=== PATIENT | male | born 1950 | race Caucasian/White ===

== ENCOUNTER 2020-10-06 12:14 | Emergency (ER) | payer OTHER ==
[~2020-10-06] VITALS: Ht 172.7 cm; Wt 81.8 kg
[~2020-10-06 12:14] MED LIST: GLIPIZIDE5 MG PO; METFORMIN500 M2 PO; ROBAXIN-750750 MG OR
[2020-10-06 12:25] VITALS: BP 165/80
[2020-10-06] MEDS ORDERED: GABAPENTIN250 MG/5 M PO (13:01)
[2020-10-06] MEDS ORDERED: TERAZOSIN2 MG PO (13:06)
[2020-10-06] MEDS ORDERED: LANTUS100 UNIT/M SC (13:07)
[2020-10-06] MEDS ORDERED: ACETAMINOPHEN325 MG PO (13:10)
[2020-10-06] MEDS ORDERED: MOTRIN400 MG/TAB PO (13:11)
[2020-10-06] MEDS ORDERED: GUAIFENESI PO (13:12)
[2020-10-06] MEDS ORDERED: DIPHENHYDRAM25 MG PO (13:13)
[2020-10-06] MEDS ORDERED: ASPIRIN ADULT325 MG PO (13:28)
[2020-10-06] MEDS ORDERED: DITROPAN5 MG/TA1 PO (13:30)
[2020-10-06] MEDS ORDERED: BACLOFEN10 MG PO (14:11)
== END 2020-10-06 15:45 | disposition home or self-care (01) | DRG 204 ==
LOC: ED 12:14
DX: R06.6 Hiccough (principal); E11.9 Type 2 diabetes mellitus without complications; Z79.4 Long term (current) use of insulin; Z20.828 Contact with and (suspected) exposure to other viral communicable diseases

== ENCOUNTER 2020-10-07 17:05 | Inpatient (IN) | payer OTHER ==
[~2020-10-07] VITALS: Ht 172.7 cm; Wt 75.4 kg
[~2020-10-07 17:05] MED LIST changes: +ACETAMINOPHEN325 MG PO; +ASPIRIN ADULT325 MG PO; +BACLOFEN10 MG PO; +DIPHENHYDRAM25 MG PO; +DITROPAN5 MG/TA1 PO; +GABAPENTIN250 MG/5 M PO; +GUAIFENESI PO; +LANTUS100 UNIT/M SC; +MOTRIN400 MG/TAB PO; +TERAZOSIN2 MG PO
--- NOTE | 2020-10-07 17:06 | NUR ---
PT TO ROOM VIA WHEELCHAIR. ACCOMPANIED BY 2 GUARDS.
[2020-10-07 17:58] LABS: IMMATURE GRANULOCYTES 0.6 % (0.0-5.0); MEAN CELL VOLUME 86.3 fL CALC (80.0-100.0); MEAN CORPUSCULAR HGB 29.2 pG CALC (26.0-32.0); MEAN CORPUSCULAR HGB CONC 33.9 g/dL CAL (32.0-36.0); NEUT# 5.85 thou/uL (1.82-7.42); RED BLOOD COUNT 5.71 mill/uL (4.70-6.10); RED CELL DISTRI WIDTH 12.6 % (11.5-15.5)
--- NOTE | 2020-10-07 18:00 | NUR ---
PT RESTING ON STRETCHER WITH TREATMENTS BEING COMPLETED. PT CONTINUES IN SAME STATE OF GCS OF 9
[2020-10-07 18:07] LABS: HEMATOCRIT 49.3 % (39.0-50.0); HEMOGLOBIN 16.7 g/dl (14.0-18.0)
[2020-10-07 18:10] LABS: URINE BLOOD DIPSTICK LARGE (NEGATIVE); URINE COLOR YELLOW; URINE GLUCOSE - DIPSTICK >=1000 mg/dL (NEGATIVE); URINE KETONE 40 mg/dL (NEGATIVE); URINE LEUK ESTERASE NEGATIVE (NEGATIVE); URINE NITRITE - DIPSTICK NEGATIVE (Negative); URINE PROTEIN - DIPSTICK 100 mg/dL (NEG-TRACE); URINE SPECIFIC GRAVITY >=1.030; URINE UROBILINOGEN - DIPSTICK 0.2 E.U./dL (0.2)
[2020-10-07 18:15] LABS: URINE BILIRUBIN - DIPSTICK NEGATIVE (NEGATIVE)
[2020-10-07 18:19] LABS: D-DIMER 2.89 mg/L (0.19-0.60)
[2020-10-07 18:21] LABS: ALBUMIN 4.3 g/dL (3.2-5.0); ALKALINE PHOSPHATASE 83 u/l (38-126); AMYLASE 67 u/l (30-110); BILIRUBIN, TOTAL 1.1 mg/dL (0.0-1.4); CHLORIDE 101 mmol/l (95-108); CREATININE 1.6 mg/dL (0.7-1.3); GFR 43 ML/MIN (>=60 (CALC)); GFR FOR AFR.AMER. 52 ML/MIN (>=60 (CALC)); LIPASE 44 u/l (23-300); MAGNESIUM 2.5 mg/dL (1.6-2.3); SGOT/AST 52 u/l (19-48); SODIUM 139 mmol/l (137-146); TOTAL PROTEIN 7.8 g/dL (6.3-8.2)
[2020-10-07 18:32] LABS: ANION GAP 27 (6-22 (CALC)); BUN 50 mg/dL (8-23); BUN/CREATININE RATIO 31 (12-20 (CALC)); C-REACTIVE PROTEIN > 27.0 mg/dL (0-0.9); CARBON DIOXIDE 16 mmol/l (22-30); POTASSIUM 5.3 mmol/l (3.5-5.1)
[2020-10-07 18:35] LABS: URINE AMORPH SEDIMENT MODERATE hpf (NONE-FER); URINE WBC 0-2 WBC/hpf (0-5)
[2020-10-07 18:43] LABS: ACT PARTIAL THROMBO TIME 24.7 SECONDS (20.0-32.5); INTERNATIONAL NORMALIZED RATIO 1.1 RATIO (0.7-1.3); PROTHROMBIN TIME 10.8 SECONDS (9.0-12.5)
--- NOTE | 2020-10-07 19:00 | NUR ---
MEDS GIVEN, REPORT PASSED ON TO AG NURSE NOTIFIED OF UNCOMPLETE MED REC
--- NOTE | 2020-10-07 20:20 | NUR ---
IV ZITHROMAX INFUSION COMPLETED AND 1 L NACL COMPLETED AFIB CONFUSED AFFECT SPEEECH IS INCOHERENT
--- NOTE | 2020-10-07 22:34 | NUR ---
W/P/D SKIN CONTROLLED AFIB SANDOVAL COLLECTING QS CONC YELLOW URINE
--- NOTE | 2020-10-07 23:18 | NUR ---
ALERT TO ASSESSMENT W/D SKIN SPEECH IS INDECIPHERABLE MUMBLING AFIB CONTROLLED
[2020-10-08] VITALS (9 sets, daily range): BP systolic 138–187; BP diastolic 55–78
--- NOTE | 2020-10-08 00:16 | NUR ---
PT MEDICATED IN CT FOR RESTLESSNESS
--- NOTE | 2020-10-08 01:35 | NUR ---
ACCU CK 229
--- NOTE | 2020-10-08 03:20 | NUR ---
PHONE REPORT TO MIRTA BURNHAM
--- NOTE | 2020-10-08 03:25 | NUR ---
PT TRANSPORTED TO ICU 6 VIA STRETCHER ON TELE AND O2 IN STABLE CONDITION
--- NOTE | 2020-10-08 03:50 | NUR ---
RECEIVED INTO ICU BED 6 FROM ER. TRANSFERRED TO BED BY 4 PERSON ASSIST. PATIENT OPENS EYS TO NAME. NODS HEAD FOR YES AND NO QUESTIONS. NON-VERBAL AT THIS TIME AND NOT ANSWERING ANY QUESTIONS. FOLLOWS SOME SIMPLE COMMANDS-WEAK HAND GRASPS BILATERALLY. ABLE TO WIGGLE TOES AND MOVE LEGS. IV IN RFA WITH CARDIZEM GTT INFUSING AT 15 MG/HR. SITE BENIGN. SALINE LOCK IN LAC. SALES INCENTIVE ANALYST SHOWS AFIB. CALL EARLY IN REACH.
--- NOTE | 2020-10-08 06:00 | NUR ---
RESTING WITH EYES CLOSED. VSS. 2 GUARDS AT DOOR. RIGHT ANKLE SHACKLED. CMS ADEQUATE TO EXTREMITIES. [
--- NOTE | 2020-10-08 09:13 | NUR ---
NO NEED FOR PHYSICAL THERAPY EVALUATION IDENTIFIED AT THIS TIME.
--- NOTE | 2020-10-08 09:42 | NUR ---
PT SEEN RESTING IN THE BED, NO DISTRESS. PT WITH DECREASED LUNG SOUNDS, BUT CLEAR, 3 LPM. PT WAS ABLE TO ANSWER QUESTIONS, BUT APPEARS WEAK GENERALLY. MONITOR SHOWS AFIB, RATE AROUND 100, CARDIZEM AT 15 MG/HR.
[2020-10-08 10:25] LABS: HEMATOCRIT 45.8 % (39.0-50.0); HEMOGLOBIN 14.8 g/dl (14.0-18.0); IMMATURE GRANULOCYTES 0.6 % (0.0-5.0); MEAN CELL VOLUME 90.5 fL CALC (80.0-100.0); MEAN CORPUSCULAR HGB 29.2 pG CALC (26.0-32.0); MEAN CORPUSCULAR HGB CONC 32.3 g/dL CAL (32.0-36.0); NEUT# 3.94 thou/uL (1.82-7.42); RED BLOOD COUNT 5.06 mill/uL (4.70-6.10)
[2020-10-08 10:54] LABS: CREATININE 1.4 mg/dL (0.7-1.3)
[2020-10-08 11:00] LABS: POTASSIUM 5.2 mmol/l (3.5-5.1)
--- NOTE | 2020-10-08 13:29 | NUR ---
O.T. screened patient today and may benefit from a P.T. and/or O.T. Eval when medically stable.
--- NOTE | 2020-10-08 14:55 | NUR ---
PT CONVERTED TO SINUS RHYTHM AT AROUND 1100. PT REMAINS CONFUSED, SLOW MOVING, NO DISTRESS NOTED. TO FLOOR WHEN BED AVAILABLE.
--- NOTE | 2020-10-08 16:26 | NUR ---
PT SEEN SITTING UP IN BED IN NO DISTRESS, GUARDS X 2 AT BEDSIDE.
--- NOTE | 2020-10-08 17:20 | NUR ---
PATIENT RECEIVED FROM ICU AND REPORT GIVEN TO MARISOL BURNHAM FROM ICU NURSE BRITTANEY. PATIENT TRANSPORTED BY BED WITH TWO [facility] GAURDS ASSIGNED TO PATIENT. PATIENT IS ALERT TO SELF AT THIS TIME. SANDOVAL CATH PATENT AND DRAINING YELLOW URINE AT THIS TIME IV SITE RAC HAS .9N/S RUNNING AT 125 PER HOUR. ALL SAFETY MEASURES ARE IN PLACE AT THIS TIME CALL LIGHT WITHIN REACH.
--- NOTE | 2020-10-08 20:16 | NUR ---
PT RESTING IN BED, NO SIGNS OF DISTRESS NOTED, RESP EVEN AND UNLABORED. PT ALERT AND ORIENTED X2, DISCUSSED POC, PT STATES HE IS WEAK, 02 1L NC SATS 97% BP ELEVATED MEDICATED PER MAR. PT HAS A GUARD AT BEDSIDE, ASSESSMENT COMPLETED, CALL LIGHT IN REACH,CONTINUE TO MONITOR.
--- NOTE | 2020-10-08 22:22 | NUR ---
MD NOTIFIED OF BP AND ORDER OBTAINED FOR CLONIDINE, CALL LIGHT IN REACH,CONTINUE TO MONITOR.
--- NOTE | 2020-10-09 | NUR ---
REPORT RECEIVED FROM [facility].
[2020-10-09 00:15] VITALS: BP 165/68
[2020-10-09 03:46] VITALS: BP 198/86
--- NOTE | 2020-10-09 03:47 | NUR ---
PT IS LAYING IN BED IN HIGH [place], SLEEPING. NO S/SX OF DISTRESS OR DISCOMFORT OBSERVED AT THIS TIME, WILL CONITINUE TO MONITOR FOR COMFORT AND SAFETY.
[2020-10-09 05:42] LABS: HEMATOCRIT 43.2 % (39.0-50.0); HEMOGLOBIN 14.6 g/dl (14.0-18.0); IMMATURE GRANULOCYTES 1.3 % (0.0-5.0); MEAN CELL VOLUME 88.3 fL CALC (80.0-100.0); MEAN CORPUSCULAR HGB 29.9 pG CALC (26.0-32.0); MEAN CORPUSCULAR HGB CONC 33.8 g/dL CAL (32.0-36.0); RED BLOOD COUNT 4.89 mill/uL (4.70-6.10); RED CELL DISTRI WIDTH 13.4 % (11.5-15.5)
[2020-10-09 05:45] LABS: ALKALINE PHOSPHATASE 49 u/l (38-126); BILIRUBIN, TOTAL 1.2 mg/dL (0.0-1.4); BUN 40 mg/dL (8-23); BUN/CREATININE RATIO 35 (12-20 (CALC)); CHLORIDE 113 mmol/l (95-108); CREATININE 1.1 mg/dL (0.7-1.3); GFR > 60 ML/MIN (>=60 (CALC)); GFR FOR AFR.AMER. > 60 ML/MIN (>=60 (CALC)); SGOT/AST 41 u/l (19-48); SODIUM 138 mmol/l (137-146)
[2020-10-09 05:53] LABS: ALBUMIN 2.6 g/dL (3.2-5.0); ANION GAP 11 (6-22 (CALC)); CARBON DIOXIDE 19 mmol/l (22-30); POTASSIUM 5.2 mmol/l (3.5-5.1); TOTAL PROTEIN 5.4 g/dL (6.3-8.2)
[2020-10-09 06:01] LABS: INTERNATIONAL NORMALIZED RATIO 1.2 RATIO (0.7-1.3)
[2020-10-09 08:32] VITALS: BP 175/78
[2020-10-09 11:00] VITALS: BP 139/67
[2020-10-09] MEDS ORDERED: CLONIDINE HCL0.1 MG PO (11:43)
[2020-10-09] MEDS ORDERED: LEVEMIR100 UNIT/M SC (11:43)
[2020-10-09] MEDS ORDERED: ELIQUIS2.5 MG PO (11:43)
[2020-10-09] MEDS ORDERED: CARDIZEM CD240 MG PO (11:43)
[2020-10-09] MEDS ORDERED: ZITHROMAX250 MG PO (12:03)
[2020-10-09 14:50] VITALS: BP 126/65
--- NOTE | 2020-10-09 19:00 | NUR ---
REPORT RECIEVED FROM DANIEL PT IS A&O X3 WITH NO S/SX OF DISTRESS OR DISCOMFORT OBSERVED OR REPORT. TELE & IV SITES HAVE BEEN D/C. PT IS BEING DISCHARGED BACK TO [facility] TONIGHT AND PENDING TRANSPORT.
--- NOTE | 2020-10-09 19:29 | NUR ---
Patient discharged back to correctional facility, patient left hospital via W/C with correctional staff. Discharge papework reviewed with patient and staff. IV removed, no bleeding noted, catheter intact.
--- NOTE | 2020-10-09 19:30 | NUR ---
[facility] CALLED AND NOTIFIED PT HAS LEFT UNIT AND IS ON THE WAY BACK TO THE FACILITY. PT TRANSPORTED VIA WHEELCHAIR ACCOMPANIED BY GUARD AND ROUTER OPERATOR PIN, PT IN STABLE CONDITION UPON DEPARTURE. REPORT CALLED INTO NURSE BROOKS. AND DISCHARGE FORM FAXED.
== END 2020-10-09 23:18 | disposition designated cancer center or children's hospital (05) | DRG 308 ==
LOC: ED 17:05 → ED-I 10-08 01:23 → ED 10-08 02:21 → ICU 10-08 02:22 → MS2 10-08 17:20
PROVIDERS: ADMIT Internal Medicine; ATTEND Internal Medicine
DX: I48.91 Unspecified atrial fibrillation (principal); U07.1 COVID-19; J12.89 Other viral pneumonia; E11.9 Type 2 diabetes mellitus without complications; I10 Essential (primary) hypertension; N40.0 Benign prostatic hyperplasia without lower urinary tract symptoms; Z79.4 Long term (current) use of insulin; Z79.82 Long term (current) use of aspirin; Z79.899 Other long term (current) drug therapy; Z88.6 Allergy status to analgesic agent; Z88.8 Allergy status to other drugs, medicaments and biological substances; Z90.5 Acquired absence of kidney
CPT/HCPCS: J1650; Q9967

== ENCOUNTER 2022-08-07 00:39 | Inpatient (IN) | payer OTHER ==
[2022-08-07] VITALS (23 sets, daily range): BP systolic 101–181; BP diastolic 50–129
[~2022-08-07] VITALS: Ht 172.7 cm; Wt 80.0 kg
[~2022-08-07 00:39] MED LIST changes: +CARDIZEM CD240 MG PO; +CLONIDINE HCL0.1 MG PO; +ELIQUIS2.5 MG PO; +LEVEMIR100 UNIT/M SC; +ZITHROMAX250 MG PO
[2022-08-07 01:34] LABS: HEMATOCRIT 39.3 % (39.0-50.0); IMMATURE GRANULOCYTES 0.1 % (0.0-5.0); MEAN CELL VOLUME 86.9 fL CALC (80.0-100.0); MEAN CORPUSCULAR HGB 28.8 pG CALC (26.0-32.0); MEAN CORPUSCULAR HGB CONC 33.1 g/dL CAL (32.0-36.0); NEUT# 7.02 thou/uL (1.82-7.42); RED BLOOD COUNT 4.52 mill/uL (4.70-6.10); RED CELL DISTRI WIDTH 12.1 % (11.5-15.5)
[2022-08-07 01:36] LABS: URINE BILIRUBIN - DIPSTICK NEGATIVE (NEGATIVE); URINE COLOR YELLOW; URINE GLUCOSE - DIPSTICK >=1000 mg/dL (NEGATIVE); URINE KETONE 15 mg/dL (NEGATIVE); URINE LEUK ESTERASE NEGATIVE (NEGATIVE); URINE PROTEIN - DIPSTICK 100 mg/dL (NEG-TRACE); URINE SPECIFIC GRAVITY 1.015; URINE UROBILINOGEN - DIPSTICK 0.2 E.U./dL (0.2)
[2022-08-07 01:41] LABS: URINE BLOOD DIPSTICK SMALL (NEGATIVE); URINE NITRITE - DIPSTICK NEGATIVE (Negative)
[2022-08-07 01:46] LABS: INTERNATIONAL NORMALIZED RATIO 1.3 RATIO (0.7-1.3); PROTHROMBIN TIME 12.7 SECONDS (9.0-12.5)
[2022-08-07 01:52] LABS: URINE BACTERIA FEW hpf; URINE SQUAMOUS EPITHELIAL CELL FEW EPI/hpf (0-FEW)
[2022-08-07 01:55] LABS: CREATININE 1.4 mg/dL (0.7-1.3)
[2022-08-07] MEDS ORDERED: LIPITOR20 M1 PO (02:16)
[2022-08-07] MEDS ORDERED: LANTUS100 UNIT (02:18)
[2022-08-07] MEDS ORDERED: TAMSULOSIN HCL0.4 MG PO (02:47)
[2022-08-07] MEDS ORDERED: HUMULIN N100 UNIT/M SC (02:50)
[2022-08-07 05:52] LABS: MEAN CELL VOLUME 88.5 fL CALC (80.0-100.0); MEAN CORPUSCULAR HGB 28.8 pG CALC (26.0-32.0); MEAN CORPUSCULAR HGB CONC 32.5 g/dL CAL (32.0-36.0); RED BLOOD COUNT 3.65 mill/uL (4.70-6.10); RED CELL DISTRI WIDTH 12.1 % (11.5-15.5)
[2022-08-07 05:53] LABS: HEMATOCRIT 32.3 % (39.0-50.0); HEMOGLOBIN 10.5 g/dl (14.0-18.0)
[2022-08-07 06:09] LABS: BUN 32 mg/dL (8-23); BUN/CREATININE RATIO 26 (12-20 (CALC)); CHLORIDE 102 mmol/l (95-108); CREATININE 1.2 mg/dL (0.7-1.3); GFR FOR AFR.AMER. > 60 ML/MIN (>=60 (CALC)); GFR OTHER RACES 60 ML/MIN (>=60 (CALC)); POTASSIUM 4.1 mmol/l (3.5-5.1); SODIUM 133 mmol/l (137-146)
[2022-08-07 06:10] LABS: ANION GAP 18 (6-22 (CALC)); CARBON DIOXIDE 17 mmol/l (22-30); MAGNESIUM 1.8 mg/dL (1.6-2.3)
[2022-08-07] MEDS ORDERED: LANTUS100 UNIT SC (16:30)
[2022-08-07] MEDS ORDERED: HUMULIN R500 UNIT/1 (16:32)
[2022-08-07] MEDS ORDERED: MINERI1 TOP (16:34)
[2022-08-07] MEDS ORDERED: ELIQUIS2.5 MG PO (17:08)
[2022-08-07] MEDS ORDERED: NOVOLIN R100 UNIT/1 SC (17:15)
[2022-08-07] MEDS ORDERED: METFORMIN500 M2 PO (17:18)
[2022-08-07 19:56] LABS: IMMATURE GRANULOCYTES 0.1 % (0.0-5.0); MEAN CORPUSCULAR HGB CONC 33.3 g/dL CAL (32.0-36.0); NEUT# 5.78 thou/uL (1.82-7.42); RED BLOOD COUNT 4.14 mill/uL (4.70-6.10); RED CELL DISTRI WIDTH 12.1 % (11.5-15.5)
[2022-08-07 20:11] LABS: ALBUMIN 3.4 g/dL (3.2-5.0); ALKALINE PHOSPHATASE 145 u/l (38-126); ANION GAP 13 (6-22 (CALC)); BILIRUBIN, TOTAL 1.1 mg/dL (0.0-1.4); BUN 31 mg/dL (8-23); BUN/CREATININE RATIO 24 (12-20 (CALC)); CARBON DIOXIDE 20 mmol/l (22-30); CHLORIDE 106 mmol/l (95-108); CREATININE 1.3 mg/dL (0.7-1.3); GFR FOR AFR.AMER. > 60 ML/MIN (>=60 (CALC)); GFR OTHER RACES 54 ML/MIN (>=60 (CALC)); MAGNESIUM 1.9 mg/dL (1.6-2.3); POTASSIUM 4.1 mmol/l (3.5-5.1); SGOT/AST 36 u/l (19-48); SODIUM 135 mmol/l (137-146); TOTAL PROTEIN 6.9 g/dL (6.3-8.2)
[2022-08-08] VITALS (36 sets, daily range): BP systolic 130–205; BP diastolic 59–121
[2022-08-08 05:47] LABS: HEMATOCRIT 36.4 % (39.0-50.0); HEMOGLOBIN 11.8 g/dl (14.0-18.0); MEAN CELL VOLUME 87.3 fL CALC (80.0-100.0); MEAN CORPUSCULAR HGB 28.3 pG CALC (26.0-32.0); MEAN CORPUSCULAR HGB CONC 32.4 g/dL CAL (32.0-36.0); RED BLOOD COUNT 4.17 mill/uL (4.70-6.10); RED CELL DISTRI WIDTH 12.2 % (11.5-15.5)
[2022-08-08 06:20] LABS: ALBUMIN 3.3 g/dL (3.2-5.0); ALKALINE PHOSPHATASE 141 u/l (38-126); ANION GAP 14 (6-22 (CALC)); BILIRUBIN, TOTAL 0.7 mg/dL (0.0-1.4); BUN 32 mg/dL (8-23); BUN/CREATININE RATIO 28 (12-20 (CALC)); CARBON DIOXIDE 23 mmol/l (22-30); CHLORIDE 102 mmol/l (95-108); CREATININE 1.2 mg/dL (0.7-1.3); GFR FOR AFR.AMER. > 60 ML/MIN (>=60 (CALC)); GFR OTHER RACES 59 ML/MIN (>=60 (CALC)); MAGNESIUM 1.9 mg/dL (1.6-2.3); POTASSIUM 3.6 mmol/l (3.5-5.1); SGOT/AST 33 u/l (19-48); SODIUM 136 mmol/l (137-146); TOTAL PROTEIN 6.7 g/dL (6.3-8.2)
[2022-08-09] VITALS (12 sets, daily range): BP systolic 113–201; BP diastolic 59–98
[2022-08-09 05:37] LABS: HEMATOCRIT 36.1 % (39.0-50.0); MEAN CELL VOLUME 86.8 fL CALC (80.0-100.0); MEAN CORPUSCULAR HGB 28.8 pG CALC (26.0-32.0); MEAN CORPUSCULAR HGB CONC 33.2 g/dL CAL (32.0-36.0); RED BLOOD COUNT 4.16 mill/uL (4.70-6.10); RED CELL DISTRI WIDTH 12.3 % (11.5-15.5)
[2022-08-09 05:55] LABS: ALBUMIN 2.7 g/dL (3.2-5.0); ALKALINE PHOSPHATASE 122 u/l (38-126); ANION GAP 12 (6-22 (CALC)); BILIRUBIN, TOTAL 0.8 mg/dL (0.0-1.4); BUN 25 mg/dL (8-23); BUN/CREATININE RATIO 25 (12-20 (CALC)); CARBON DIOXIDE 25 mmol/l (22-30); CHLORIDE 102 mmol/l (95-108); GFR FOR AFR.AMER. > 60 ML/MIN (>=60 (CALC)); GFR OTHER RACES > 60 ML/MIN (>=60 (CALC)); POTASSIUM 3.6 mmol/l (3.5-5.1); SGOT/AST 27 u/l (19-48); SODIUM 135 mmol/l (137-146); TOTAL PROTEIN 5.5 g/dL (6.3-8.2)
[2022-08-10] VITALS: BP 168/78
[2022-08-10 02:04] LABS: HEMATOCRIT 35.1 % (39.0-50.0); HEMOGLOBIN 11.8 g/dl (14.0-18.0); MEAN CORPUSCULAR HGB 28.9 pG CALC (26.0-32.0); MEAN CORPUSCULAR HGB CONC 33.6 g/dL CAL (32.0-36.0); RED BLOOD COUNT 4.08 mill/uL (4.70-6.10); RED CELL DISTRI WIDTH 12.2 % (11.5-15.5)
[2022-08-10 02:17] LABS: BUN 23 mg/dL (8-23); BUN/CREATININE RATIO 22 (12-20 (CALC)); CARBON DIOXIDE 20 mmol/l (22-30); CREATININE 1.1 mg/dL (0.7-1.3); GFR FOR AFR.AMER. > 60 ML/MIN (>=60 (CALC)); GFR OTHER RACES > 60 ML/MIN (>=60 (CALC)); MAGNESIUM 1.9 mg/dL (1.6-2.3); POTASSIUM 3.7 mmol/l (3.5-5.1); SODIUM 133 mmol/l (137-146)
[2022-08-10 02:19] LABS: ANION GAP 17 (6-22 (CALC)); CHLORIDE 100 mmol/l (95-108)
[2022-08-10 04:00] VITALS: BP 181/73
[2022-08-10 10:40] VITALS: BP 162/68
[2022-08-10 15:14] VITALS: BP 195/79
[2022-08-10 15:17] VITALS: BP 195/79
[2022-08-10] MEDS ORDERED: ROCEPHIN 1 GM1 GM IV (18:52)
[2022-08-12 03:30] VITALS: BP 161/83
== END 2022-08-10 21:05 | disposition designated cancer center or children's hospital (05) | DRG 871 ==
LOC: ED 00:39 → ED-I 03:00 → ED 03:24 → ICU 03:25 → MS2 03:25
PROVIDERS: Emergency Medicine; Internal Medicine; ADMIT Internal Medicine; ATTEND Internal Medicine
DX: A40.1 Sepsis due to streptococcus, group B (principal); K22.6 Gastro-esophageal laceration-hemorrhage syndrome; L97.423 Non-pressure chronic ulcer of left heel and midfoot with necrosis of muscle; E11.52 Type 2 diabetes mellitus with diabetic peripheral angiopathy with gangrene; I96 Gangrene, not elsewhere classified; L03.116 Cellulitis of left lower limb; R65.20 Severe sepsis without septic shock; E11.621 Type 2 diabetes mellitus with foot ulcer; E11.65 Type 2 diabetes mellitus with hyperglycemia; E11.628 Type 2 diabetes mellitus with other skin complications; I10 Essential (primary) hypertension; I48.91 Unspecified atrial fibrillation; R06.6 Hiccough; K59.00 Constipation, unspecified; N40.0 Benign prostatic hyperplasia without lower urinary tract symptoms; T38.3X6A Underdosing of insulin and oral hypoglycemic [antidiabetic] drugs, initial encounter; Z91.128 Patient's intentional underdosing of medication regimen for other reason; Z79.4 Long term (current) use of insulin; Z90.49 Acquired absence of other specified parts of digestive tract; Z79.01 Long term (current) use of anticoagulants; Z90.5 Acquired absence of kidney; Z85.038 Personal history of other malignant neoplasm of large intestine; Z20.822 Contact with and (suspected) exposure to COVID-19
CPT/HCPCS: A9579; J0692; J1650; Q3014; S0164

== ENCOUNTER 2022-08-18 12:58 | Inpatient (IN) | payer OTHER ==
[2022-08-18] VITALS (10 sets, daily range): BP systolic 112–155; BP diastolic 44–95
[~2022-08-18] VITALS: Ht 172.7 cm; Wt 77.0 kg
[~2022-08-18 12:58] MED LIST changes: +HUMULIN N100 UNIT/M SC; +HUMULIN R500 UNIT/1; +LANTUS100 UNIT; +LANTUS100 UNIT SC; +LIPITOR20 M1 PO; +MINERI1 TOP; +NOVOLIN R100 UNIT/1 SC; +ROCEPHIN 1 GM1 GM IV; +TAMSULOSIN HCL0.4 MG PO
[2022-08-18 14:12] LABS: HEMATOCRIT 36.7 % (39.0-50.0); HEMOGLOBIN 11.9 g/dl (14.0-18.0); IMMATURE GRANULOCYTES 0.4 % (0.0-5.0); MEAN CORPUSCULAR HGB 28.5 pG CALC (26.0-32.0); MEAN CORPUSCULAR HGB CONC 32.4 g/dL CAL (32.0-36.0); NEUT# 12.53 thou/uL (1.82-7.42); RED BLOOD COUNT 4.17 mill/uL (4.70-6.10); RED CELL DISTRI WIDTH 12.7 % (11.5-15.5)
[2022-08-18 14:34] LABS: ALKALINE PHOSPHATASE 167 u/l (38-126); BILIRUBIN, TOTAL 1.1 mg/dL (0.0-1.4); BUN 22 mg/dL (8-23); BUN/CREATININE RATIO 18 (12-20 (CALC)); CARBON DIOXIDE 23 mmol/l (22-30); CHLORIDE 96 mmol/l (95-108); CREATININE 1.2 mg/dL (0.7-1.3); GFR FOR AFR.AMER. > 60 ML/MIN (>=60 (CALC)); GFR OTHER RACES 59 ML/MIN (>=60 (CALC)); SGOT/AST 31 u/l (19-48); SODIUM 136 mmol/l (137-146)
[2022-08-18 14:36] LABS: ALBUMIN 3.5 g/dL (3.2-5.0); ANION GAP 22 (6-22 (CALC)); POTASSIUM 4.9 mmol/l (3.5-5.1); TOTAL PROTEIN 7.6 g/dL (6.3-8.2)
[2022-08-18] MEDS ORDERED: TERAZOSIN2 MG PO (16:16)
[2022-08-19 04:09] VITALS: BP 149/52
[2022-08-19 06:20] VITALS: BP 136/75
[2022-08-19 14:29] VITALS: BP 138/77
[2022-08-19 18:59] VITALS: BP 161/65
[2022-08-19 23:51] VITALS: BP 181/61
[2022-08-20 03:48] VITALS: BP 170/61
[2022-08-20 06:41] LABS: HEMATOCRIT 32.1 % (39.0-50.0); HEMOGLOBIN 10.2 g/dl (14.0-18.0); IMMATURE GRANULOCYTES 0.2 % (0.0-5.0); MEAN CELL VOLUME 90.2 fL CALC (80.0-100.0); MEAN CORPUSCULAR HGB 28.7 pG CALC (26.0-32.0); MEAN CORPUSCULAR HGB CONC 31.8 g/dL CAL (32.0-36.0); NEUT# 3.41 thou/uL (1.82-7.42); RED BLOOD COUNT 3.56 mill/uL (4.70-6.10); RED CELL DISTRI WIDTH 12.8 % (11.5-15.5)
[2022-08-20 06:57] VITALS: BP 156/65
[2022-08-20 07:03] LABS: BUN 20 mg/dL (8-23); BUN/CREATININE RATIO 18 (12-20 (CALC)); CARBON DIOXIDE 21 mmol/l (22-30); CREATININE 1.2 mg/dL (0.7-1.3); GFR FOR AFR.AMER. > 60 ML/MIN (>=60 (CALC)); GFR OTHER RACES 59 ML/MIN (>=60 (CALC)); POTASSIUM 4.7 mmol/l (3.5-5.1); SODIUM 138 mmol/l (137-146)
[2022-08-20 07:07] LABS: ANION GAP 14 (6-22 (CALC)); CHLORIDE 108 mmol/l (95-108)
[2022-08-20 15:11] VITALS: BP 142/75
[2022-08-20 20:09] VITALS: BP 169/56
[2022-08-21] VITALS (10 sets, daily range): BP systolic 154–205; BP diastolic 48–83
[2022-08-22] VITALS (12 sets, daily range): BP systolic 162–214; BP diastolic 54–76
[2022-08-23] VITALS (7 sets, daily range): BP systolic 132–202; BP diastolic 51–75
[2022-08-23 12:21] LABS: HEMATOCRIT 34.7 % (39.0-50.0); IMMATURE GRANULOCYTES 0.3 % (0.0-5.0); MEAN CELL VOLUME 88.5 fL CALC (80.0-100.0); MEAN CORPUSCULAR HGB 28.1 pG CALC (26.0-32.0); MEAN CORPUSCULAR HGB CONC 31.7 g/dL CAL (32.0-36.0); NEUT# 5.58 thou/uL (1.82-7.42); RED BLOOD COUNT 3.92 mill/uL (4.70-6.10); RED CELL DISTRI WIDTH 12.9 % (11.5-15.5)
[2022-08-23 12:27] LABS: ANION GAP 19 (6-22 (CALC)); BUN 12 mg/dL (8-23); BUN/CREATININE RATIO 13 (12-20 (CALC)); CARBON DIOXIDE 21 mmol/l (22-30); CHLORIDE 104 mmol/l (95-108); CREATININE 0.9 mg/dL (0.7-1.3); GFR FOR AFR.AMER. > 60 ML/MIN (>=60 (CALC)); GFR OTHER RACES > 60 ML/MIN (>=60 (CALC)); POTASSIUM 4.8 mmol/l (3.5-5.1); SODIUM 140 mmol/l (137-146)
[2022-08-24] VITALS (8 sets, daily range): BP systolic 140–170; BP diastolic 45–70
[2022-08-25] VITALS: BP 170/62
[2022-08-25 04:03] VITALS: BP 164/55
[2022-08-25 06:22] VITALS: BP 170/59
[2022-08-25 07:28] VITALS: BP 170/59
[2022-08-25 08:32] VITALS: BP 170/59
[2022-08-25] MEDS ORDERED: LOPRESSOR 550 MG/TAB PO (08:56)
[2022-08-25] MEDS ORDERED: TRAMADOL HCL50 MG PO (08:57)
== END 2022-08-25 12:45 | disposition designated cancer center or children's hospital (05) | DRG 239 ==
LOC: ED 12:58 → ED-I 14:17 → ED 14:28 → MS2 14:29
PROVIDERS: Nurse Practitioner; ADMIT Surgery; ATTEND Surgery
PROC: 0Y6N0Z0 Detachment at Left Foot, Complete, Open Approach (ICD-10-PCS; principal; 2022-08-18)
PROC: 0Y6J0Z1 Detachment at Left Lower Leg, High, Open Approach (ICD-10-PCS; 2022-08-22)
DX: E11.52 Type 2 diabetes mellitus with diabetic peripheral angiopathy with gangrene (principal); A48.0 Gas gangrene; L97.423 Non-pressure chronic ulcer of left heel and midfoot with necrosis of muscle; M86.172 Other acute osteomyelitis, left ankle and foot; E11.621 Type 2 diabetes mellitus with foot ulcer; I48.91 Unspecified atrial fibrillation; E11.69 Type 2 diabetes mellitus with other specified complication; E11.65 Type 2 diabetes mellitus with hyperglycemia; B95.2 Enterococcus as the cause of diseases classified elsewhere; Z79.4 Long term (current) use of insulin; Z90.49 Acquired absence of other specified parts of digestive tract; Z87.891 Personal history of nicotine dependence; Z20.822 Contact with and (suspected) exposure to COVID-19
CPT/HCPCS: J0131; J3370

== ENCOUNTER 2023-09-11 07:55 | Inpatient (IN) | payer OTHER ==
[~2023-09-11] VITALS: Ht 172.7 cm; Wt 66.3 kg
[~2023-09-11 07:55] MED LIST changes: +CLOTRIMAZOLE1 % VA; +CVS STOOL SOFT100 MG; +DILTIAZEM HCL120 M1 PO; +HUMALOG100 UNIT/M SC; +LOPRESSOR 550 MG/TAB PO; +LOVENOX 3030 MG/0.3 SC; +MUPIROCIN21; +SANTYL250 UNIT/G; +TRAMADOL HCL50 MG PO; +VITAMIN C + PO; +[UNRECOGNIZED DRUG - OTHER]; +[UNRECOGNIZED DRUG - OTHER]
[2023-09-11 15:00] VITALS: BP 128/56
[2023-09-11 16:00] VITALS: BP 128/56
[2023-09-11 17:37] VITALS: BP 147/62
[2023-09-12 03:48] VITALS: BP 142/48
[2023-09-12 05:21] LABS: BASO% 0.5 % (0-3); EOS% 3.7 % (0-8); HEMATOCRIT 31.9 % (39.0-50.0); HEMOGLOBIN 10.7 g/dl (14.0-18.0); IMMATURE GRANULOCYTES 0.4 % (0.0-5.0); LYMPH% 24.9 % (15-41); MEAN CELL VOLUME 86.4 fL CALC (80.0-100.0); MEAN CORPUSCULAR HGB CONC 33.5 g/dL CAL (32.0-36.0); MONO% 10.7 % (2-13); NEUT# 3.37 thou/uL (1.82-7.42); NEUT% 59.8 % (42-76); RED BLOOD COUNT 3.69 mill/uL (4.70-6.10)
[2023-09-12 05:45] LABS: ALKALINE PHOSPHATASE 90 u/l (38-126); ANION GAP 15 (6-22 (CALC)); BUN 13 mg/dL (8-23); BUN/CREATININE RATIO 17 (12-20 (CALC)); CARBON DIOXIDE 20 mmol/l (22-30); CHLORIDE 104 mmol/l (95-108); CREATININE 0.8 mg/dL (0.7-1.3); GFR FOR AFR.AMER. > 60 ML/MIN (>=60 (CALC)); GFR OTHER RACES > 60 ML/MIN (>=60 (CALC)); POTASSIUM 4.1 mmol/l (3.5-5.1); SGOT/AST 17 u/l (19-48); SODIUM 135 mmol/l (137-146)
[2023-09-12 05:49] LABS: ALBUMIN 2.7 g/dL (3.2-5.0); TOTAL PROTEIN 5.6 g/dL (6.3-8.2)
[2023-09-12 18:38] VITALS: BP 146/53
[2023-09-13 04:10] VITALS: BP 179/66
[2023-09-13 06:17] LABS: BASO% 0.3 % (0-3); EOS% 2.4 % (0-8); HEMOGLOBIN 11.5 g/dl (14.0-18.0); IMMATURE GRANULOCYTES 0.3 % (0.0-5.0); LYMPH% 23.6 % (15-41); MEAN CELL VOLUME 89.6 fL CALC (80.0-100.0); MEAN CORPUSCULAR HGB 28.6 pG CALC (26.0-32.0); MEAN CORPUSCULAR HGB CONC 31.9 g/dL CAL (32.0-36.0); MONO% 10.3 % (2-13); NEUT# 4.43 thou/uL (1.82-7.42); NEUT% 63.1 % (42-76); RED BLOOD COUNT 4.02 mill/uL (4.70-6.10); RED CELL DISTRI WIDTH 13.1 % (11.5-15.5)
[2023-09-13 06:35] LABS: ALKALINE PHOSPHATASE 95 u/l (38-126); ANION GAP 18 (6-22 (CALC)); BILIRUBIN, TOTAL 1.3 mg/dL (0.2-1.3); BUN 10 mg/dL (8-23); BUN/CREATININE RATIO 13 (12-20 (CALC)); CARBON DIOXIDE 18 mmol/l (22-30); CHLORIDE 105 mmol/l (95-108); CREATININE 0.8 mg/dL (0.7-1.3); GFR FOR AFR.AMER. > 60 ML/MIN (>=60 (CALC)); GFR OTHER RACES > 60 ML/MIN (>=60 (CALC)); MAGNESIUM 1.7 mg/dL (1.6-2.3); POTASSIUM 4.5 mmol/l (3.5-5.1); SGOT/AST 24 u/l (19-48); SODIUM 137 mmol/l (137-146)
[2023-09-13 08:00] VITALS: BP 187/72
[2023-09-13 11:30] VITALS: BP 148/91
[2023-09-13 16:30] VITALS: BP 161/58
[2023-09-13 18:15] VITALS: BP 156/63
[2023-09-14 02:51] VITALS: BP 151/46
[2023-09-14 05:06] VITALS: BP 151/46
[2023-09-14 06:20] LABS: BASO% 0.2 % (0-3); EOS% 0.8 % (0-8); HEMATOCRIT 32.8 % (39.0-50.0); HEMOGLOBIN 10.8 g/dl (14.0-18.0); IMMATURE GRANULOCYTES 0.4 % (0.0-5.0); LYMPH% 16.3 % (15-41); MEAN CELL VOLUME 86.1 fL CALC (80.0-100.0); MEAN CORPUSCULAR HGB 28.3 pG CALC (26.0-32.0); MEAN CORPUSCULAR HGB CONC 32.9 g/dL CAL (32.0-36.0); MONO% 10.2 % (2-13); NEUT# 6.42 thou/uL (1.82-7.42); NEUT% 72.1 % (42-76); RED BLOOD COUNT 3.81 mill/uL (4.70-6.10); RED CELL DISTRI WIDTH 13.2 % (11.5-15.5)
[2023-09-14 06:32] LABS: ALBUMIN 2.7 g/dL (3.2-5.0); ALKALINE PHOSPHATASE 95 u/l (38-126); BILIRUBIN, TOTAL 1.1 mg/dL (0.2-1.3); BUN 10 mg/dL (8-23); BUN/CREATININE RATIO 12 (12-20 (CALC)); CHLORIDE 104 mmol/l (95-108); CREATININE 0.9 mg/dL (0.7-1.3); GFR FOR AFR.AMER. > 60 ML/MIN (>=60 (CALC)); GFR OTHER RACES > 60 ML/MIN (>=60 (CALC)); MAGNESIUM 1.7 mg/dL (1.6-2.3); SGOT/AST 22 u/l (19-48); SODIUM 137 mmol/l (137-146); TOTAL PROTEIN 5.8 g/dL (6.3-8.2)
[2023-09-14 06:45] LABS: ANION GAP 10 (6-22 (CALC)); CARBON DIOXIDE 26 mmol/l (22-30); POTASSIUM 3.4 mmol/l (3.5-5.1)
[2023-09-14 07:00] VITALS: BP 142/53
[2023-09-14] MEDS ORDERED: OXYCODONE5 M1 PO (08:33)
[2023-09-14] MEDS ORDERED: ZOSYN IV (08:35)
[2023-09-14 08:44] VITALS: BP 142/53
== END 2023-09-14 11:15 | disposition designated cancer center or children's hospital (05) | DRG 240 ==
LOC: ORM 07:55 → MS2 11:17 → ORM 12:00 → MS2 09-12 11:17
PROVIDERS: Student in an Organized Health Care Education/Training Program; ADMIT Surgery; ATTEND Surgery
PROC: 0Y6M0ZD Detachment at Right Foot, Partial 4th Ray, Open Approach (ICD-10-PCS; principal; 2023-09-11)
PROC: 0Y6M0ZF Detachment at Right Foot, Partial 5th Ray, Open Approach (ICD-10-PCS; 2023-09-11)
DX: E11.52 Type 2 diabetes mellitus with diabetic peripheral angiopathy with gangrene (principal); I96 Gangrene, not elsewhere classified; M86.671 Other chronic osteomyelitis, right ankle and foot; L97.513 Non-pressure chronic ulcer of other part of right foot with necrosis of muscle; E11.69 Type 2 diabetes mellitus with other specified complication; E11.621 Type 2 diabetes mellitus with foot ulcer; I10 Essential (primary) hypertension; I48.91 Unspecified atrial fibrillation; M62.461 Contracture of muscle, right lower leg; L22 Diaper dermatitis; N40.0 Benign prostatic hyperplasia without lower urinary tract symptoms; B19.20 Unspecified viral hepatitis C without hepatic coma; Z79.4 Long term (current) use of insulin; Z89.512 Acquired absence of left leg below knee; Z79.01 Long term (current) use of anticoagulants; Z87.891 Personal history of nicotine dependence
CPT/HCPCS: J0690

== ENCOUNTER 2023-12-24 23:12 | Inpatient (IN) | payer OTHER ==
[~2023-12-24] VITALS: Ht 172.7 cm; Wt 68.0 kg
[~2023-12-24 23:12] MED LIST changes: +OXYCODONE5 M1 PO; +ZOSYN IV
--- NOTE | 2023-12-24 23:12 | NUR ---
PATIENT TO TREATMENT ROOM VIA EMS STRETCHER, ACCOMPANIED BY GUARDS. TRIAGE COMPLETED FROM MEDICAL RECORDS. AWAITING EVAL.
[2023-12-24] MEDS ORDERED: CEFEPIME HYDROCHLORIDE 2 GM in SODIUM CHLORIDE 0.9% 100 ML IV ONE (23:25)
[2023-12-24] MEDS ORDERED: SODIUM CHLORIDE 0.9% 1,000 ML IV ONE ×2 (23:25)
[2023-12-24] MEDS ORDERED: CLINDAMYCIN PHOSPHATE IN D5W 50 ML IV ONE (23:25)
[2023-12-24] MEDS ORDERED: CARDIZEM CD120 MG PO (23:25)
[2023-12-24] MEDS ORDERED: VANCOMYCIN HCL 1 GM in SODIUM CHLORIDE 0.9% 250 ML IV ONE (23:25)
[2023-12-24] MEDS ORDERED: AZITHROMYCIN 500 MG in SODIUM CHLORIDE 0.9% 250 ML IV ONE (23:25)
[2023-12-24] MEDS ORDERED: FLORASTOR250 M1 PO (23:30)
[2023-12-24] MEDS ORDERED: ZINC OXIDE (23:30)
[2023-12-24] MEDS ORDERED: SANTYL250 UNIT/G TOP (23:31)
[2023-12-24] MEDS ORDERED: VITAMIN D-32000 UNI1 PO (23:32)
[2023-12-24 23:37] VITALS: BP 117/61
[2023-12-24 23:45] VITALS: BP 119/59
[2023-12-25] VITALS (38 sets, daily range): BP systolic 94–145; BP diastolic 39–76
[2023-12-25 00:03] LABS: BASO% 0.4 % (0-3); IMMATURE GRANULOCYTES 0.5 % (0.0-5.0); LYMPH% 9.3 % (15-41); MEAN CELL VOLUME 82.6 fL CALC (80.0-100.0); MEAN CORPUSCULAR HGB 27.7 pG CALC (26.0-32.0); MEAN CORPUSCULAR HGB CONC 33.6 g/dL CAL (32.0-36.0); MONO% 12.8 % (2-13); NEUT# 6.08 thou/uL (1.82-7.42); RED BLOOD COUNT 4.76 mill/uL (4.70-6.10); RED CELL DISTRI WIDTH 13.6 % (11.5-15.5)
[2023-12-25 00:04] LABS: HEMATOCRIT 39.3 % (39.0-50.0); HEMOGLOBIN 13.2 g/dl (14.0-18.0)
[2023-12-25 00:17] LABS: INTERNATIONAL NORMALIZED RATIO 1.3 RATIO (0.7-1.3); PROTHROMBIN TIME 12.6 SECONDS (9.0-12.5)
[2023-12-25 00:21] LABS: ALKALINE PHOSPHATASE 112 u/l (38-126); BILIRUBIN, TOTAL 0.7 mg/dL (0.2-1.3); CARBON DIOXIDE 25 mmol/l (22-30); CHLORIDE 100 mmol/l (95-108); ETHYL ALCOHOL 0 mg/dl (0-30); GFR FOR AFR.AMER. > 60 ML/MIN (>=60 (CALC)); GFR OTHER RACES > 60 ML/MIN (>=60 (CALC)); LIPASE 14 u/l (23-300); SGOT/AST 31 u/l (19-48); SODIUM 134 mmol/l (137-146)
[2023-12-25 00:22] LABS: ALBUMIN 3.4 g/dL (3.2-5.0); ANION GAP 13 (6-22 (CALC)); BUN 41 mg/dL (8-23); BUN/CREATININE RATIO 41 (12-20 (CALC)); POTASSIUM 4.1 mmol/l (3.5-5.1)
[2023-12-25 02:29] LABS: MYOGLOBIN 1124 ng/mL (14.3-65.8)
--- NOTE | 2023-12-25 03:05 | NUR ---
SPOKE WITH CHERISE FROM [facility] AND GIVEN UPDATED REPORT.
[2023-12-25] MEDS ORDERED: MAGNESIUM HYDROXIDE 30 ML UDC PO PRN (03:50)
[2023-12-25] MEDS ORDERED: SODIUM CHLORIDE 0.9% 1,000 ML IV PRN (03:50)
[2023-12-25] MEDS ORDERED: DEXTROSE 250 ML IV PRN ×2 (05:05→05:10)
[2023-12-25] MEDS ORDERED: oxyCODONE HCL 5 MG/TAB PO PRN (05:10)
[2023-12-25] MEDS ORDERED: CLINDAMYCIN PHOSPHATE 50 ML IV SCH (06:00)
[2023-12-25] MEDS ORDERED: FLUCONAZOLE 200 MG/100 ML IV SCH (06:30)
[2023-12-25 06:47] LABS: BASO% 0.2 % (0-3); HEMATOCRIT 35.9 % (39.0-50.0); HEMOGLOBIN 11.9 g/dl (14.0-18.0); IMMATURE GRANULOCYTES 1.3 % (0.0-5.0); LYMPH% 11.8 % (15-41); MEAN CELL VOLUME 85.1 fL CALC (80.0-100.0); MEAN CORPUSCULAR HGB 28.2 pG CALC (26.0-32.0); MEAN CORPUSCULAR HGB CONC 33.1 g/dL CAL (32.0-36.0); MONO% 13.3 % (2-13); NEUT# 4.03 thou/uL (1.82-7.42); NEUT% 73.4 % (42-76); RED BLOOD COUNT 4.22 mill/uL (4.70-6.10); RED CELL DISTRI WIDTH 13.8 % (11.5-15.5)
[2023-12-25] MEDS ORDERED: INSULIN LISPRO 100 UNITS/ML ML SC SCH (07:00)
[2023-12-25 07:43] LABS: ANION GAP 12 (6-22 (CALC)); BUN 37 mg/dL (8-23); BUN/CREATININE RATIO 35 (12-20 (CALC)); CARBON DIOXIDE 21 mmol/l (22-30); CHLORIDE 108 mmol/l (95-108); CREATININE 1.1 mg/dL (0.7-1.3); GFR FOR AFR.AMER. > 60 ML/MIN (>=60 (CALC)); GFR OTHER RACES > 60 ML/MIN (>=60 (CALC)); POTASSIUM 3.8 mmol/l (3.5-5.1); SODIUM 137 mmol/l (137-146)
[2023-12-25 07:59] LABS: CPK 2148 u/l (55-170)
[2023-12-25] MEDS ORDERED: TAMSULOSIN HCL 0.4 MG CAP PO SCH (08:00)
[2023-12-25] MEDS ORDERED: INSULIN DETEMIR 100 UNITS/ML SC SCH (09:00)
[2023-12-25] MEDS ORDERED: CEFEPIME HYDROCHLORIDE 1 GM in SODIUM CHLORIDE 0.9% 50 ML IV SCH (09:00)
--- NOTE | 2023-12-25 09:57 | NUR ---
PT ARRIVED FROM ER VIA STRETCHE WITH STAFF AND GUARDS X2, DR RAMIREZ AND MACEY BUSCH IN TO VISIT WITH PT. DRESSING REMOVED FROM LEFT HIP, COCCYX AREA. MEASUREMENT AND PICTURES OBTAINED AND RECOVERED WITH MEPELEX ALSO R FOOT COVERED WITH NON ADHERENT AND KERLIX.
--- NOTE | 2023-12-25 10:06 | NUR ---
patient taken to icu bed 1 via bed by this nurse.
--- NOTE | 2023-12-25 12:00 | NUR ---
PT IS RELAXING IN BED WITH 2 GUARDS AT BEDSIDE. SANDOVAL WAS PLACED WITH 16 MOZAMBICAN CUDAE PT TOLERATED WELL. COPIOUS AMOUNT OF DARK YELLOW URINE CAME OUT VERY CONCENTRATED. CONTINUE TO OSBERVE AND MONITOR.
[2023-12-25] MEDS ORDERED: CEFEPIME HYDROCHLORIDE 2 GM in SODIUM CHLORIDE 0.9% 100 ML IV SCH (13:00)
--- NOTE | 2023-12-25 13:00 | NUR ---
DR LING IN TO SEE PT, WOUND CARE INSTRUCITONS LEFT FOR STAFF.
[2023-12-25] MEDS ORDERED: VANCOMYCIN HCL 750 MG in SODIUM CHLORIDE 0.9% 235 ML IV SCH (13:30)
--- NOTE | 2023-12-25 14:00 | NUR ---
PT IS RELAXING IN BED WITH NO DISTRESS NOTED.
--- NOTE | 2023-12-25 14:33 | NUR ---
S: RUPESH SANCHEZ is a 73 M who presents with osteomylitis. He has a history of diabetes, hypertension, prostate problems, A Fib, and hepatitis. All medications in patient's chart were reviewed. O: VS: BP 129/63 mmHg, P 90bpm, RR 18bpm, W 68 kg, HT 172.72 cm, Scr= 1.1 mg/dL, CrCl= 56.7 ml/min A: Blood culture is pending. P: Patient is on cefepime 2gm iv q12h Vancomycin ordered for pharmacy to dose. Start Vancomycin 750mg IV Q12H. Vancomycin trough is drawn before the 4th dose on 12/27/23 01:00. Vancomycin goal trough is between 15-20 mcg/ml. Pharmacy will follow and or advise on antibiotics use as needed.
--- NOTE | 2023-12-25 16:00 | NUR ---
PT CONTINUES TO RELAX WIHT NO DISTRESS NOTED. IV SITE REMAINS FREE FROM REDNESS OR EDEMA.
--- NOTE | 2023-12-25 18:04 | NUR ---
PT RESTING IN BED WITH 2 GUARDS AT BEDSIDE. NO DISTRESS NOTED. SANDOVAL INTACT. DRAINING YELLOW URINE.
--- NOTE | 2023-12-25 19:45 | NUR ---
BEDSIDE REPORT RECEIVED FROM OFF GOING NURSE. PATIENT ASLEEP IN BED BUT EASILY AROUSED. 2 GUARDS AT BEDSIDE. PATIENT REQUESTED TO BE COVERED UP BUT DENIES PAIN OR DISCOMFORT. RESPIRATIONS EVEN AND UNLABORED ON ROOM AIR. SAFETY MEASURES IN PLACE. CALL LIGHT WITHIN REACH.
[2023-12-25] MEDS ORDERED: METOPROLOL TARTRATE 25 MG/TAB PO SCH (21:00)
[2023-12-25] MEDS ORDERED: ENOXAPARIN SODIUM 40 MG/0.4 ML SYR SC SCH ×2 (21:00)
--- NOTE | 2023-12-25 21:54 | NUR ---
PATIENT ASLEEP IN BED. DECLINED TO BE TURNED/REPOSITIONED. PREFERS TO LAY ON RIGHT SIDE. RESPIRATIONS EVEN AND UNLABORED. TWO GUARDS REMAIN AT BEDSIDE. NO SIGNS OF DISTRESS NOTED. SAFETY MEASURES IN PLACE.
[2023-12-25 22:35] LABS: URINE BLOOD DIPSTICK Moderate (NEGATIVE); URINE GLUCOSE - DIPSTICK 500 mg/dL (NEGATIVE); URINE KETONE 15 mg/dL (NEGATIVE); URINE NITRITE - DIPSTICK Negative (Negative); URINE PH 5.5 (4.5-8.0); URINE PROTEIN - DIPSTICK 30 mg/dL (NEG-TRACE); URINE SPECIFIC GRAVITY 1.015; URINE UROBILINOGEN - DIPSTICK 0.2 E.U./dL (0.2)
[2023-12-25 22:38] LABS: URINE COLOR Yellow; URINE LEUK ESTERASE Large (NEGATIVE)
[2023-12-25 22:44] LABS: URINE BACTERIA MODERATE hpf; URINE SQUAMOUS EPITHELIAL CELL FEW EPI/hpf (0-FEW); URINE WBC >100 WBC/hpf (0-5)
--- NOTE | 2023-12-25 23:51 | NUR ---
PATIENT ALSEEP IN BED. RESPIRATIONS EVEN AND UNLABORED ON ROOM AIR. CONTINUES TO FAVOR RIGHT SIDE AND DOES NOT WISH TO TURN. NO SIGNS OF DISTRESS NOTED. TWO GUARDS REMAIN IN ROOM. NEEDS ANTICIPATED.
[2023-12-26] VITALS: BP 141/66
[2023-12-26 01:00] VITALS: BP 130/52
--- NOTE | 2023-12-26 01:19 | NUR ---
UPDATE GIVEN TO GREEN [facility]. PATIENT CONTINUES TO REST WITH EYES CLOSED. EASILY AROUSED. IV FLUIDS CONTINUE. SAFETY MEASURES IN PLACE.
[2023-12-26 02:00] VITALS: BP 130/54
[2023-12-26 03:57] VITALS: BP 147/67
--- NOTE | 2023-12-26 04:04 | NUR ---
PATIENT ASLEEP IN BED BUT EASILY AROUSED WHEN SPOKEN TO. PATIENT DECLINES TO BE TURNED FROM RIGHT SIDE. TWO GUARDS REMAIN AT BEDSIDE. IV FLUIDS CONTINUE. SAFETY MEASURES ROMMEL PLACE.
[2023-12-26 07:07] LABS: BASO% 0.5 % (0-3); EOS% 0.3 % (0-8); IMMATURE GRANULOCYTES 0.3 % (0.0-5.0); LYMPH% 13.9 % (15-41); MEAN CELL VOLUME 84.4 fL CALC (80.0-100.0); MEAN CORPUSCULAR HGB 28.1 pG CALC (26.0-32.0); MEAN CORPUSCULAR HGB CONC 33.3 g/dL CAL (32.0-36.0); MONO% 14.7 % (2-13); NEUT# 4.24 thou/uL (1.82-7.42); NEUT% 70.3 % (42-76); RED BLOOD COUNT 3.91 mill/uL (4.70-6.10); RED CELL DISTRI WIDTH 13.9 % (11.5-15.5)
--- NOTE | 2023-12-26 07:51 | NUR ---
PT RESTING ON LEFT SIDE, GUARDS AT BEDSIDE, PT ALERT, ANSWERS QUESTIONS. ADVISED WE NEEDED TO REPOSITION PT TO RIGHT SIDE, HE BECAME AGITATED AND REFUSED TO ROLL OVER.
[2023-12-26 07:56] LABS: ALKALINE PHOSPHATASE 93 u/l (38-126); ANION GAP 9 (6-22 (CALC)); BILIRUBIN, TOTAL 0.5 mg/dL (0.2-1.3); BUN 36 mg/dL (8-23); BUN/CREATININE RATIO 27 (12-20 (CALC)); CARBON DIOXIDE 21 mmol/l (22-30); CHLORIDE 111 mmol/l (95-108); CREATININE 1.3 mg/dL (0.7-1.3); GFR FOR AFR.AMER. > 60 ML/MIN (>=60 (CALC)); GFR OTHER RACES 54 ML/MIN (>=60 (CALC)); MAGNESIUM 1.9 mg/dL (1.6-2.3); POTASSIUM 3.6 mmol/l (3.5-5.1); SODIUM 138 mmol/l (137-146)
[2023-12-26 08:13] LABS: ALBUMIN 2.2 g/dL (3.2-5.0); SGOT/AST 62 u/l (19-48); TOTAL PROTEIN 4.9 g/dL (6.3-8.2)
--- NOTE | 2023-12-26 14:09 | NUR ---
pts dressing removed, cleaned and redressed per order. changed bed linens and diaper.
--- NOTE | 2023-12-26 15:13 | NUR ---
S: RUPESH SANCHEZ is a 73 M who presents with acute osteomyelitis of ankle and foot. O: VS: BP 139/77, P 96, RR 30, T 98 W 68 kg, HT 68 in, Scr=1.3, CrCl= 47.9 ml/min Vancomycin trough = 16 A: Blood culture is pending. Vancomycin trough within therapeutic range. No change warranted. P: Patient is on vancomycin 750 mg IV q12h. Vancomycin ordered for pharmacy to dose. Continue Vancomycin 750 mg IV Q12H. Vancomycin trough is drawn before the dose on 12/28@0100. Vancomycin goal trough is between 15-20 mcg/ml. Pharmacy will follow and or advise on antibiotics use as needed.
--- NOTE | 2023-12-26 15:33 | NUR ---
pt downgraded to med surg with telemetry, advised guard and pt that he is to be moved from icu to med surg 265. asked pt once again if he would consider hospice or amputation of lower limb and he refuses.
--- NOTE | 2023-12-26 16:00 | NUR ---
PT TRANSFERRED TO MED SURG UNIT BY HOSPITAL BED. WOUND CARE TELE-CONSULT COMPLETED. PT LYING IN BED WITH 2 GUARDS PRESENT. VSS. CALL LIGHT IN REACH.
--- NOTE | 2023-12-26 16:52 | NUR ---
PT'S BLOOD SUGAR 74. PT DRANK ORANGE JUICE. DENIED ANY S/S OF LOW BLOOD SUGAR. VSS.
[2023-12-26] MEDS ORDERED: Meropenem 1 GM in SODIUM CHLORIDE 0.9% 100 ML IV SCH (16:58)
--- NOTE | 2023-12-26 20:30 | NUR ---
awake. pt has poor eye contact with staff. plan consultant shows sinus rhythm. ivf infusing per lac. po fluids encouraged. pt drank small amout. refused vital signs. macias cath in place. urine cloudy yellow. has multi decubs on feet, coccyx, hip. requires total care for all needs but refuses MUCH of the care. spoke @ length about skin problems & need for good nutrition. pt denies skin problems. guards x2 @ bedside. fall precautions cont.
--- NOTE | 2023-12-26 23:44 | NUR ---
tele shows sinus rhythm ht 77.
[2023-12-27] VITALS (7 sets, daily range): BP systolic 115–155; BP diastolic 50–85
[2023-12-27] MEDS ORDERED: VANCOMYCIN HCL 1 GM/VIAL IV ONE (00:23)
[2023-12-27] MEDS ORDERED: SODIUM CHLORIDE 0.9% 250 ML IV ONE (00:24)
--- NOTE | 2023-12-27 04:00 | NUR ---
DISPENSARY TECHNICIAN SHOWS SINUS RHYTHM HR 81
[2023-12-27 05:22] LABS: ALBUMIN 2.1 g/dL (3.2-5.0); ALKALINE PHOSPHATASE 80 u/l (38-126); BUN 26 mg/dL (8-23); BUN/CREATININE RATIO 25 (12-20 (CALC)); CARBON DIOXIDE 19 mmol/l (22-30); CHLORIDE 114 mmol/l (95-108); CREATININE 1.1 mg/dL (0.7-1.3); GFR FOR AFR.AMER. > 60 ML/MIN (>=60 (CALC)); GFR OTHER RACES > 60 ML/MIN (>=60 (CALC)); MAGNESIUM 1.9 mg/dL (1.6-2.3); SGOT/AST 78 u/l (19-48); SODIUM 137 mmol/l (137-146)
[2023-12-27 05:24] LABS: ANION GAP 8 (6-22 (CALC)); BILIRUBIN, TOTAL 0.8 mg/dL (0.2-1.3); POTASSIUM 4.4 mmol/l (3.5-5.1)
[2023-12-27 05:43] LABS: BASO% 0.1 % (0-3); EOS% 1.6 % (0-8); HEMATOCRIT 34.6 % (39.0-50.0); HEMOGLOBIN 11.5 g/dl (14.0-18.0); IMMATURE GRANULOCYTES 0.3 % (0.0-5.0); LYMPH% 15.2 % (15-41); MEAN CELL VOLUME 84.4 fL CALC (80.0-100.0); MEAN CORPUSCULAR HGB CONC 33.2 g/dL CAL (32.0-36.0); MONO% 10.1 % (2-13); NEUT# 5.02 thou/uL (1.82-7.42); NEUT% 72.7 % (42-76); RED BLOOD COUNT 4.1 mill/uL (4.70-6.10); RED CELL DISTRI WIDTH 14.1 % (11.5-15.5)
--- NOTE | 2023-12-27 08:00 | NUR ---
RECEIVED REPORT FROM NIGHTSHIFT NURSE. PT FROM [facility] WITH 2 GAURDS PRESENT IN ROOM AT BEDSIDE. PT NOTED SITTING UP FOWLERS AT THIS TIME, GAURD HELPING WITH BREAKFAST FEED. PT IS A/O TO SELF, COULD NOT RECALL YEAR AND DISORIENTED TO PLACE. REORIENTED THAT PT IS AT [facility] AND YEAR IS 2023. PT DENIES ANY PAIN AT THIS TIME, MULTIPLE WOUNDS NOTED WITH DSG CDI THROUGH BODY. PT UNABLE TO RECALL WHEN WOUNDS FIRST APPEARED. ABEBE AT BEDSIDE STATES "PT IS BEDBOUND AT FACILITY." EDUCATED PT ON AIR MATRESS, DSG CHANGE, MED SCHEDULE, AND PLAN OF CARE. WILL NEED TO REINFORCE. CALL LIGHT WITHIN REACH AND SAFETY PRECAUTIONS IN PLACE.
--- NOTE | 2023-12-27 11:47 | NUR ---
PT REPOSITIONED IN BED HIGH FOWLERS, ASSISTED WITH FEEDING LUNCH. GAURDS AT BEDSIDE. NO S.S OF DISTRESS. CALL LIGHT WITHIN REACH AND SAFETY PRECAUTIONS IN PLACE.
[2023-12-27] MEDS ORDERED: MAGNESIUM SULFATE HEPTAHYDRATE 50 ML IV SCH (13:30)
[2023-12-27] MEDS ORDERED: Meropenem 1 GM in SODIUM CHLORIDE 0.9% 100 ML IV SCH (17:00)
--- NOTE | 2023-12-27 17:22 | NUR ---
PT BLOOD SUGAR 36, PT AROUSABLE TO SPEECH AND PAIN. OFFERED COKE AND MEDICAITON ADMINISTERED PER EMAR FOR LOW BLOOD SUGAR. PHYSICIAN WAS NOTIFIED. PT REPOSITIONED HIGH FOWLERS IN BED. VERONICA IN ROOM WITH PT.
--- NOTE | 2023-12-27 17:26 | NUR ---
PT GLUCOSE AT THIS TIME 92
--- NOTE | 2023-12-27 21:20 | NUR ---
TTBEDSIDE REPORT RECEIVED FROM OFF GOING NURSE. PATIENT ASLEEP IN BED. BLOOD SUGAR REPORTED 35. PATIENT NOT AWAKE AAND UNABLE TO TAKE ANYTHING BY MOUTH AT THIS TIME. HYPOGLYCEMIC PROTOCOL BEING FOLLOWED AT THIS TIME. RESPIRATIONS EVEN AND UNLABORED ON ROOM AIR. TAHIRANET MOANS WHEN TURNED BUT DENIES PAIN AND DECLINES PAIN MEDICATION. WILL CONTINUE TO MONITOR.
--- NOTE | 2023-12-27 21:55 | NUR ---
PATIENT BLOOD SUGAR RECHECKED AND WAS 105. PATIENT CONTINUES TO REST WITH EYES CLOSED. RESPIRATIONS EVEN AND UNLABORED ON ROOM AIR. SAFETY MEASURES INPLACE. 2 GUARDS REMAIN AT BEDSIDE. NEEDS ANTICIPATED BY STAFF.
--- NOTE | 2023-12-27 23:22 | NUR ---
PATIENT ASLEEP IN BED BUT EASILY AROUSED. REPSIRATIONS EVEN AND UNLAORED ONROOM AIR. NO SIGNS OF DISTRESS NOTED. 2 GUARDS REMAIN AT BEDSIDE. NEEDS ANTICIPATED BY STAFF.
[2023-12-28] VITALS (7 sets, daily range): BP systolic 104–151; BP diastolic 33–55
--- NOTE | 2023-12-28 02:00 | NUR ---
PATIENT NOTED TO BE CLAMMY TO TOUCH. BLOOD SUGAR CHECKED AND WAS 19. HYPOGLYCEMIC PROTOCOL INITIATED. PATIENT ASLEEP AND UNABLE TO TAKE ANYTHING PO. SENIOR TRAINING AND DEVELOPMENT REP MADE AWARE AND NEW ORDERS RECEIVED. 2 GUARDS REMAIN AT BEDSIDE. NEEDS ANTICIPATED BY STAFF.
[2023-12-28] MEDS ORDERED: CLARIFY DOSE PO PRN (02:40)
[2023-12-28] MEDS ORDERED: DEXTROSE 5% w/NACL 0.45 1,000 ML IV PRN (02:55)
--- NOTE | 2023-12-28 03:45 | NUR ---
FEMI FROM [facility] CALLED TO GET UPDATE ON PATIENT. FACILITY UPDATED ON LOW BLOOD SUGARS AND NEW ORDERS. PATIENT CONTINUES TO SLEEP BUT AROUSABLE. CONTINUES ON Q2H TURNS. SAFTEY MEASURES IN PLACE. NEEDS ANTICIPATED.
[2023-12-28 05:42] LABS: BASO% 0.4 % (0-3); EOS% 1.7 % (0-8); HEMATOCRIT 32.2 % (39.0-50.0); HEMOGLOBIN 10.5 g/dl (14.0-18.0); IMMATURE GRANULOCYTES 0.4 % (0.0-5.0); LYMPH% 14.8 % (15-41); MEAN CELL VOLUME 85.2 fL CALC (80.0-100.0); MEAN CORPUSCULAR HGB 27.8 pG CALC (26.0-32.0); MEAN CORPUSCULAR HGB CONC 32.6 g/dL CAL (32.0-36.0); MONO% 9.7 % (2-13); NEUT# 6.14 thou/uL (1.82-7.42); RED BLOOD COUNT 3.78 mill/uL (4.70-6.10)
[2023-12-28 05:45] LABS: ALKALINE PHOSPHATASE 108 u/l (38-126); BILIRUBIN, TOTAL 0.5 mg/dL (0.2-1.3); BUN 17 mg/dL (8-23); BUN/CREATININE RATIO 22 (12-20 (CALC)); CARBON DIOXIDE 20 mmol/l (22-30); CHLORIDE 112 mmol/l (95-108); CREATININE 0.8 mg/dL (0.7-1.3); GFR FOR AFR.AMER. > 60 ML/MIN (>=60 (CALC)); GFR OTHER RACES > 60 ML/MIN (>=60 (CALC)); SGOT/AST 52 u/l (19-48); SODIUM 138 mmol/l (137-146); TOTAL PROTEIN 4.7 g/dL (6.3-8.2)
[2023-12-28 05:53] LABS: ANION GAP 9 (6-22 (CALC)); POTASSIUM 3.2 mmol/l (3.5-5.1)
--- NOTE | 2023-12-28 08:00 | NUR ---
Bedside shift report completed. Guards in room. Denies need at present time.
--- NOTE | 2023-12-28 09:46 | NUR ---
Discussed buttermaker abt and picc line need with patient. Stated he was ok with receiving both. Transported to radiology for PICC line insertion.
[2023-12-28] MEDS ORDERED: POTASSIUM CHLORIDE 20 MEQ/TAB PO SCH (10:30)
--- NOTE | 2023-12-28 11:48 | NUR ---
S: RUPESH SANCHEZ is a 73 M who presents with altered mental status. He has a history of diabetes, hypertension, and prostrate issues. All medications in patient's chart were reviewed. O: VS: YC=198/49 mmHg , P= 82 beats/min, RR= 21 breaths/min ,T= 97.8 F W= 68 kg, HT= 68 inches, Scr= 0.8 mg/dl, CrCl= 62.3 ml/min Trough level - 22mcg/ml A: Blood culture shows no growth after 48 hours incubation. Urine culture shows no growth after 48 hours incubation. wound culture shows few gram possitive coccobacilli. Trough above goal level of 15-20 mcg/ml P: Patient is on vancomycin 750 mg IV Q12H and meropemen 1 g IV Q8H. Vancomycin ordered for pharmacy to dose. Start Vancomycin 1250 mg IV Q24H. Vancomycin trough is drawn before the 4th dose on 12/30/23 @ 1300. Vancomycin goal trough is between 15-20 mcg/ml. Pharmacy will follow and or advise on antibiotics use as needed.
[2023-12-28] MEDS ORDERED: VANCOMYCIN HCL 1,250 MG in SODIUM CHLORIDE 0.9% 225 ML IV SCH (13:30)
--- NOTE | 2023-12-28 19:15 | NUR ---
PT ASSESMT COMPLETE. PT GRIMACED IN PAIN, ASKED IF IN ANY PAIN, REFUSED TO ANSWER. PT HAS 16FR SANDOVAL IN PLACE.
[2023-12-28] MEDS ORDERED: INSULIN DETEMIR 100 UNITS/ML SC SCH (21:00)
--- NOTE | 2023-12-29 02:30 | NUR ---
PT DENIES ANY PAIN. ANSWERED MY QUESTIONS, A+O, BUT HAS MOMENTS OF CONFUSION. 800ML FROM SANDOVAL. CONSUMED SHEREEN. PUDDING NO SWALLOW ISSUES. CALL LIGHT IN REACH
[2023-12-29 03:11] VITALS: BP 130/44
--- NOTE | 2023-12-29 06:43 | NUR ---
PT HAS EDEMA TO BILAT UPPER EXTREMITIES. +2/3 PITTING. D5 1/2 NS @ 100ML/HR. PICC LINE IS PATENT IN ABIGAIL. SITE DOES LOOK SWOLLEN, ERYTHEMATOUS, BUT APPEARS TO BE DUE TO THE EDEMA TO THE EXTREMITY. PT COMPLAINS OF PAIN UPON ASSESSMENT. V/S STABLE. 2 OFFICERS IN ROOM WITH PT.
[2023-12-29 06:48] LABS: BASO% 0.3 % (0-3); EOS% 2.4 % (0-8); HEMATOCRIT 29.8 % (39.0-50.0); IMMATURE GRANULOCYTES 0.6 % (0.0-5.0); LYMPH% 15.9 % (15-41); MEAN CELL VOLUME 85.6 fL CALC (80.0-100.0); MEAN CORPUSCULAR HGB 28.7 pG CALC (26.0-32.0); MEAN CORPUSCULAR HGB CONC 33.6 g/dL CAL (32.0-36.0); MONO% 8.8 % (2-13); NEUT# 5.01 thou/uL (1.82-7.42); RED BLOOD COUNT 3.48 mill/uL (4.70-6.10); RED CELL DISTRI WIDTH 13.8 % (11.5-15.5)
[2023-12-29 07:02] LABS: ALBUMIN 1.9 g/dL (3.2-5.0); ALKALINE PHOSPHATASE 94 u/l (38-126); ANION GAP 9 (6-22 (CALC)); BILIRUBIN, TOTAL 0.6 mg/dL (0.2-1.3); BUN 12 mg/dL (8-23); BUN/CREATININE RATIO 13 (12-20 (CALC)); CARBON DIOXIDE 21 mmol/l (22-30); CHLORIDE 106 mmol/l (95-108); CREATININE 0.9 mg/dL (0.7-1.3); GFR FOR AFR.AMER. > 60 ML/MIN (>=60 (CALC)); GFR OTHER RACES > 60 ML/MIN (>=60 (CALC)); MAGNESIUM 1.7 mg/dL (1.6-2.3); SGOT/AST 31 u/l (19-48); SODIUM 132 mmol/l (137-146); TOTAL PROTEIN 4.4 g/dL (6.3-8.2)
[2023-12-29 07:25] VITALS: BP 116/47
[2023-12-29] MEDS ORDERED: DEXTROSE 250 ML IV PRN (12:10)
[2023-12-29 12:28] VITALS: BP 131/50
[2023-12-29 16:40] VITALS: BP 127/36
[2023-12-29] MEDS ORDERED: INSULIN LISPRO 100 UNITS/ML ML SC SCH (17:00)
[2023-12-29 19:24] VITALS: BP 114/33
--- NOTE | 2023-12-29 20:00 | NUR ---
RECEIVED REPORT FROM NURSE MALINA, PATIENT RESTING IN BED, PATIENT FROM [facility], 2 GUARDS IN ROOM, ABIGAIL PICC LINE NS @ 50 INFUSING WELL, HOOKED ON SR WITH PVC 83, LUNG SOUND CLEAR, PATIENT LEFT BKA, PATIENT PRESSURE ON BUTTOCKS AQUACEL IN PLACED, WOUND ON PENILE AREA, SANDOVAL CATH DRAINING YELLOW URINE, PSTIENT REFUSED MEDICATION AND REFUSED TO ANSWER QUESTION, REFUSED TO BE REPOSITIONED,WILL REATTEMPT.
--- NOTE | 2023-12-29 20:40 | NUR ---
PATIENT REFUSED MEDICATION, 2 GUARSDS IN ROOM, REFUSED STATES "NO" AT THIS BTIME.
[2023-12-29 23:59] VITALS: BP 121/47
[2023-12-30] VITALS (7 sets, daily range): BP systolic 116–152; BP diastolic 37–56
--- NOTE | 2023-12-30 | NUR ---
PATINET MEDICATED WITH ROXICODONE FOR GEN BODY PAIN, NEW DRESSING APPLIED TO HIP, COCCYX, PATIENT ON AIR MATRESS, REFUSED TO CHANGE DRESSING ON RT FOOT.
--- NOTE | 2023-12-30 03:38 | NUR ---
RECEIVED REPORT FROM NURSE MILI EPSTEIN ARRIVED MS UNIT AT 0233, REPORT GIVEN BY ED TETE GARCES DONE 1ST UNIT OF BLOOD, TAHIRANET TRANSPORTED VIA BED, PATIENT ALERT ORIENTED, PALE, IRRITABLE, IV ON RAC G 20 FLUSHES WELL AND LEFT WRIST G 20 HOOKED NS @ KVO, 2ND UNIT OF BLOOD CURRENTLY INFUSING, ADMISSION ASSESSMENT COMPLETED, NOT IN DISTRESS, CALL LIGHT IN REACH.
--- NOTE | 2023-12-30 04:00 | NUR ---
PATINET RESTING IN BED, NOT IN DISTRESS, BREATHING UNLABORED, GUARDS IN ROOM.
[2023-12-30 06:31] LABS: BASO% 0.3 % (0-3); EOS% 2.2 % (0-8); HEMATOCRIT 29.2 % (39.0-50.0); HEMOGLOBIN 9.6 g/dl (14.0-18.0); IMMATURE GRANULOCYTES 0.5 % (0.0-5.0); LYMPH% 20.5 % (15-41); MEAN CELL VOLUME 86.9 fL CALC (80.0-100.0); MEAN CORPUSCULAR HGB 28.6 pG CALC (26.0-32.0); MEAN CORPUSCULAR HGB CONC 32.9 g/dL CAL (32.0-36.0); MONO% 9.4 % (2-13); NEUT# 4.05 thou/uL (1.82-7.42); NEUT% 67.1 % (42-76); RED BLOOD COUNT 3.36 mill/uL (4.70-6.10); RED CELL DISTRI WIDTH 13.5 % (11.5-15.5)
[2023-12-30 06:52] LABS: ALBUMIN 1.8 g/dL (3.2-5.0); ALKALINE PHOSPHATASE 90 u/l (38-126); ANION GAP 5 (6-22 (CALC)); BILIRUBIN, TOTAL 0.6 mg/dL (0.2-1.3); BUN 11 mg/dL (8-23); BUN/CREATININE RATIO 12 (12-20 (CALC)); CHLORIDE 106 mmol/l (95-108); CREATININE 0.9 mg/dL (0.7-1.3); GFR FOR AFR.AMER. > 60 ML/MIN (>=60 (CALC)); GFR OTHER RACES > 60 ML/MIN (>=60 (CALC)); MAGNESIUM 1.6 mg/dL (1.6-2.3); POTASSIUM 3.5 mmol/l (3.5-5.1); SGOT/AST 38 u/l (19-48); SODIUM 133 mmol/l (137-146); TOTAL PROTEIN 4.4 g/dL (6.3-8.2)
[2023-12-30 06:53] LABS: CARBON DIOXIDE 26 mmol/l (22-30)
[2023-12-30] MEDS ORDERED: MORPHINE SULFATE 4 MG/ML VIAL IV PRN (14:00)
--- NOTE | 2023-12-30 14:23 | NUR ---
S: RUPESH SANCHEZ is a 73 M who presents with osteomyletis All medications in patient's chart were reviewed. O: VS: BP 138/42 mmHg, P 84 bpm, RR 20 bpm,T 97.4 F W 68kg, HT 68 in, Scr= 0.9 mg/dl ,CrCl= 62ml/min Trough = 17 ug/ml A: Blood culture shows no growth Urine culture shows no growth P: Patient is on vancomycin 1250mg IV Q24H and meropenem 1gm IV Q8H. Continue Vancomycin 1250mg IV Q24H as trough is with range. Vancomycin trough is drawn before the 4th dose on 01/02/24 @1300. Vancomycin goal trough is between 15-20 mcg/ml. Pharmacy will follow and or advise on antibiotics use as needed.
[2023-12-30] MEDS ORDERED: MEROPENEM1 GM IV (19:20)
[2023-12-30] MEDS ORDERED: VANCOMYCIN750 MG IV (19:20)
--- NOTE | 2023-12-30 20:00 | NUR ---
RECEIVED REPORT FROM NURSE MALINA, PATIENT RESTING IN BED, 2 GUARDS IN ROOM, PATIRNT IRRITABLE, NON COMPLIANT WITH TREATMENT PLAN, DECLINES CARE, PATINET EDUCATED BUT REFUSED IV ON ABIGAIL D51/2 NS AT 50CC/HR INFUSING WELL, REFUSED TO BE REPOSITIONED, REFUSED MEDICATION, PATIENT ON TELEMETRY SR 85, SANDOVAL CATHETER DRAINING YELLOW SLOUDY URINE, EDEMA NOTED ON BILAT HANDS, DRESSING ON RT FOOT NOTED.
[2023-12-31 00:39] VITALS: BP 137/47
--- NOTE | 2023-12-31 01:15 | NUR ---
DRESSING ON THE RT FOOT DONE, PATINET GIVEN PAIN MEDICATION, PATIENT MACERATION ON PUBIC AREA, PATIENT CLEANED, NEW DIAPER ON, PATIENT TURNED AND REPOSITIONED, STUMP NOTED DISCOLORATION OFFLOADED, PATINET RESTING ON AIR MATRESS.
--- NOTE | 2023-12-31 04:00 | NUR ---
PATIENT RESTING IN BED, EYES CLOSED, BREATHING EVEN UNALBAORED
[2023-12-31 05:02] VITALS: BP 127/48
[2023-12-31 07:01] LABS: BASO% 0.2 % (0-3); EOS% 1.7 % (0-8); HEMATOCRIT 30.9 % (39.0-50.0); HEMOGLOBIN 9.9 g/dl (14.0-18.0); IMMATURE GRANULOCYTES 0.5 % (0.0-5.0); LYMPH% 19.2 % (15-41); MEAN CORPUSCULAR HGB 27.9 pG CALC (26.0-32.0); MONO% 9.5 % (2-13); NEUT# 3.99 thou/uL (1.82-7.42); NEUT% 68.9 % (42-76); RED BLOOD COUNT 3.55 mill/uL (4.70-6.10); RED CELL DISTRI WIDTH 13.5 % (11.5-15.5)
[2023-12-31 07:18] VITALS: BP 136/49
--- NOTE | 2023-12-31 08:00 | NUR ---
PT IN BED WITH HOB UP, DROWSY EYES OPENED TO VOICE AND TOUCH, SPEACH IS GARBLED. VERONICA AT BEDSIDE. PT TELE ON WITH ALL LEADS ATTACHED. PICC LINE TO ABIGAIL CLEAN AND INTACT WITH D5 1/2 INFUSING @ 30 ML/HR. PT LUNGS CLEAR AND BREATHING IS NON LABORED. PT ABD IS SOFT WITH ACTIVE BS. SANDOVAL INTACT DRAINING CLOUDY, YELLOW URINE. PT HAS CALL LIGHT WITHIN REACH AND SAFETY MEASURES IN PLACE AT THIS TIME.
[2023-12-31 08:27] VITALS: BP 133/54
[2023-12-31 08:33] LABS: ANION GAP 10 (6-22 (CALC)); BUN 10 mg/dL (8-23); BUN/CREATININE RATIO 12 (12-20 (CALC)); CARBON DIOXIDE 23 mmol/l (22-30); CHLORIDE 104 mmol/l (95-108); CREATININE 0.8 mg/dL (0.7-1.3); GFR FOR AFR.AMER. > 60 ML/MIN (>=60 (CALC)); GFR OTHER RACES > 60 ML/MIN (>=60 (CALC)); POTASSIUM 3.6 mmol/l (3.5-5.1); SODIUM 134 mmol/l (137-146)
--- NOTE | 2023-12-31 09:00 | NUR ---
INFORMED PROVIDER OF PT DROWSY STATE. BS 212 AND VSS. PT AROUSED TO TOUCH.
--- NOTE | 2023-12-31 12:00 | NUR ---
PT IN BED RESTING, EYES OPENED TO TOUCH. PT HAS GAURDS AT BEDSIDE. PT HAS CALL LIGHT WITHIN REACH AND SAFETY MEASURES IN PLACE AT THIS TIME.
--- NOTE | 2023-12-31 14:43 | NUR ---
Discharge instructions given. Patient verbalizes understanding of same. Discharged in stable condition via [facility] to [facility] with [facility]. All belongings sent with pt.
--- NOTE | 2023-12-31 18:47 | NUR ---
CALLED [facility] AT SPOKE TO JOSH REGARDING PICKUP PLACEMENT OF AIR MATTRESS. CONFIRMATION NUMBER WAS GIVEN AT THIS TIME #[id number].
== END 2023-12-31 14:54 | DRG 637 ==
LOC: ED 23:12 → ED-I 23:23 → ED 12-25 03:50 → ICU 12-25 03:51 → ED-I 12-25 03:51 → ICU 12-25 09:58 → MS2 12-26 15:33
PROVIDERS: Emergency Medicine; Nurse Practitioner Family; Student in an Organized Health Care Education/Training Program; ADMIT Internal Medicine; ATTEND Internal Medicine
PROC: 0T9B70Z Drainage of Bladder with Drainage Device, Via Natural or Artificial Opening (ICD-10-PCS; principal; 2023-12-25)
PROC: 02HV33Z Insertion of Infusion Device into Superior Vena Cava, Percutaneous Approach (ICD-10-PCS; 2023-12-28)
PROC: B518ZZA Fluoroscopy of Superior Vena Cava, Guidance (ICD-10-PCS; 2023-12-28)
DX: E11.69 Type 2 diabetes mellitus with other specified complication (principal); G93.41 Metabolic encephalopathy; M86.171 Other acute osteomyelitis, right ankle and foot; L03.115 Cellulitis of right lower limb; L97.413 Non-pressure chronic ulcer of right heel and midfoot with necrosis of muscle; M86.671 Other chronic osteomyelitis, right ankle and foot; N39.0 Urinary tract infection, site not specified; I10 Essential (primary) hypertension; L89.220 Pressure ulcer of left hip, unstageable; L89.150 Pressure ulcer of sacral region, unstageable; E11.621 Type 2 diabetes mellitus with foot ulcer; E11.649 Type 2 diabetes mellitus with hypoglycemia without coma; R32 Unspecified urinary incontinence; E11.51 Type 2 diabetes mellitus with diabetic peripheral angiopathy without gangrene; I48.0 Paroxysmal atrial fibrillation; L89.899 Pressure ulcer of other site, unspecified stage; B95.2 Enterococcus as the cause of diseases classified elsewhere; R62.7 Adult failure to thrive; Z74.01 Bed confinement status; Z89.512 Acquired absence of left leg below knee; Z66 Do not resuscitate; Z89.421 Acquired absence of other right toe(s); Z90.49 Acquired absence of other specified parts of digestive tract; Z53.20 Procedure and treatment not carried out because of patient's decision for unspecified reasons; Z79.4 Long term (current) use of insulin
CPT/HCPCS: J0692; J1650; J3370; J3475; Q9967; S0077

== ENCOUNTER 2024-01-04 11:31 | Inpatient (IN) | payer OTHER ==
[~2024-01-04] VITALS: Ht 172.7 cm; Wt 63.5 kg
[2024-01-04] VITALS (7 sets, daily range): BP systolic 93–127; BP diastolic 45–58
[~2024-01-04 11:31] MED LIST changes: +CARDIZEM CD120 MG PO; +FLORASTOR250 M1 PO; +MEROPENEM1 GM IV; +PROPOFOL 200 MG/20 ML VIAL IV ONE; +ROCURONIUM BROMIDE 10 MG/ML 5ML VIAL IV ONE; +SANTYL250 UNIT/G TOP; +SODIUM CHLORIDE 0.9% 1,000 ML BAG IV ONE; +SUCCINYLCHOLINE CHLORIDE 20 MG/ML 10ML VIAL IV ONE; +SUGAMMADEX SODIUM 200 MG/2 ML SDV IV ONE; +VANCOMYCIN750 MG IV; +VITAMIN D-32000 UNI1 PO; +ZINC OXIDE
[2024-01-04] MEDS ORDERED: SODIUM CHLORIDE 0.9% 1,000 ML IV PRN (12:15)
[2024-01-04] MEDS ORDERED: SODIUM CHLORIDE 0.9% 10 ML SYR ONE (12:19)
[2024-01-04] MEDS ORDERED: SODIUM CHLORIDE 0.9% 100 ML IV ONE (12:25)
[2024-01-04] MEDS ORDERED: PIPERACILLIN Sodium-Tazobactam 3.375 GM VIAL IV ONE (12:25)
[2024-01-04] MEDS ORDERED: LIDOcaine HCl 1% (Local Anesth.) 20 ML VIAL ONE (13:39)
[2024-01-04] MEDS ORDERED: SODIUM CHLORIDE 1,000 ML BTL IR ONE (13:39)
[2024-01-04] MEDS ORDERED: STERILE WATER FOR IRRIGATION 1,000 ML BTL IR ONE (13:39)
[2024-01-04] MEDS ORDERED: LIDOCAINE HCL 1% (10MG/ML) 100 MG/10 ML MDV ONE (13:39)
[2024-01-04] MEDS ORDERED: oxyCODONE 5MG/ ACETAMINOPHEN 325MG TAB PO PRN (14:10)
[2024-01-04] MEDS ORDERED: HYDROmorphone HCL 2 MG/AMP IV PRN (14:10)
[2024-01-04] MEDS ORDERED: ONDANSETRON HCl 4 MG/2 ML SDV IV PRN (14:10)
[2024-01-04 16:23] LABS: ALKALINE PHOSPHATASE 88 u/l (38-126); ANION GAP 15 (6-22 (CALC)); BILIRUBIN, TOTAL 0.7 mg/dL (0.2-1.3); BUN 14 mg/dL (8-23); BUN/CREATININE RATIO 18 (12-20 (CALC)); CHLORIDE 108 mmol/l (95-108); CREATININE 0.8 mg/dL (0.7-1.3); GFR FOR AFR.AMER. > 60 ML/MIN (>=60 (CALC)); GFR OTHER RACES > 60 ML/MIN (>=60 (CALC)); POTASSIUM 3.7 mmol/l (3.5-5.1); SGOT/AST 30 u/l (19-48); SODIUM 137 mmol/l (137-146); TOTAL PROTEIN 4.9 g/dL (6.3-8.2)
[2024-01-04 16:26] LABS: CARBON DIOXIDE 18 mmol/l (22-30)
--- NOTE | 2024-01-04 16:37 | NUR ---
patient glucose level was 203.
[2024-01-04] MEDS ORDERED: KETOROLAC TROMETHAMINE 15 MG/ML SDV IV SCH (18:00)
[2024-01-04] MEDS ORDERED: PIPERACILLIN Sodium-Tazobactam 3.375 GM in SODIUM CHLORIDE 0.9% 100 ML IV SCH (18:00)
[2024-01-05 04:13] VITALS: BP 99/39
[2024-01-05 05:20] LABS: BASO% 0.5 % (0-3); EOS% 1.4 % (0-8); IMMATURE GRANULOCYTES 0.2 % (0.0-5.0); LYMPH% 19.3 % (15-41); MEAN CELL VOLUME 87.4 fL CALC (80.0-100.0); MEAN CORPUSCULAR HGB 28.8 pG CALC (26.0-32.0); MEAN CORPUSCULAR HGB CONC 32.9 g/dL CAL (32.0-36.0); MONO% 7.1 % (2-13); NEUT% 71.5 % (42-76); RED BLOOD COUNT 2.78 mill/uL (4.70-6.10); RED CELL DISTRI WIDTH 13.4 % (11.5-15.5)
[2024-01-05 05:24] LABS: HEMATOCRIT 24.3 % (39.0-50.0)
[2024-01-05 06:54] VITALS: BP 111/44
--- NOTE | 2024-01-05 08:30 | NUR ---
notified dr ocampo of consultation from dr andrea for medical management.
[2024-01-05 10:53] VITALS: BP 115/51
--- NOTE | 2024-01-05 11:17 | NUR ---
patient refused to get his gulcose level checked, nurse notified.
[2024-01-05] MEDS ORDERED: POTASSIUM CHLORIDE 20MEQ 100 ML IV SCH (12:00)
[2024-01-05] MEDS ORDERED: VANCOMYCIN HCL 1 GM in SODIUM CHLORIDE 0.9% 250 ML IV SCH (13:00)
[2024-01-05] MEDS ORDERED: Meropenem 1 GM in SODIUM CHLORIDE 0.9% 100 ML IV SCH (15:00)
[2024-01-05 16:31] VITALS: BP 134/51
[2024-01-05 20:27] VITALS: BP 123/44
--- NOTE | 2024-01-06 04:14 | NUR ---
Update given to TEJ Oneill at [facility].
[2024-01-06 04:16] VITALS: BP 144/64
--- NOTE | 2024-01-06 08:00 | NUR ---
BEDSIDE SHIFT REPORT CMPLETED. CALL LIGHT IN REACH GUARDS AT BEDSIDE.
[2024-01-06 09:22] LABS: BASO% 0.6 % (0-3); EOS% 2.1 % (0-8); IMMATURE GRANULOCYTES 0.6 % (0.0-5.0); LYMPH% 15.4 % (15-41); MEAN CELL VOLUME 86.8 fL CALC (80.0-100.0); MEAN CORPUSCULAR HGB 27.8 pG CALC (26.0-32.0); MONO% 6.1 % (2-13); NEUT# 3.57 thou/uL (1.82-7.42); NEUT% 75.2 % (42-76); RED BLOOD COUNT 2.88 mill/uL (4.70-6.10); RED CELL DISTRI WIDTH 13.6 % (11.5-15.5)
[2024-01-06 09:41] LABS: BUN 9 mg/dL (8-23); BUN/CREATININE RATIO 14 (12-20 (CALC)); CHLORIDE 112 mmol/l (95-108); CREATININE 0.6 mg/dL (0.7-1.3); GFR FOR AFR.AMER. > 60 ML/MIN (>=60 (CALC)); GFR OTHER RACES > 60 ML/MIN (>=60 (CALC)); POTASSIUM 3.5 mmol/l (3.5-5.1); SODIUM 138 mmol/l (137-146)
[2024-01-06 09:44] LABS: ANION GAP 7 (6-22 (CALC)); CARBON DIOXIDE 23 mmol/l (22-30)
[2024-01-06] MEDS ORDERED: DEXTROSE 250 ML IV PRN (14:05)
--- NOTE | 2024-01-06 14:30 | NUR ---
MEDICATED WITH DILAUDID FOR DRESSING CHANGES AND BED BATH. PICTURES OBTAINED OF ALL WOUNDS, COCCYX, BOTH HIPS, BOTH STUMPS, PENIS, BACK OF LEFT ARM. TOLERATED PRETTY WELL. SURGEON IN AND UNDRESSED SURGICAL INCISION TO RIGHT BKA. OBTAINED PICTURES AND REDRESSED WITH DRY DRESSING ORDERED.
--- NOTE | 2024-01-06 15:14 | NUR ---
S: RUPESH SANCHEZ is a 73 M who presents with cellulitis. A: Wound culture shows Enterococcus faecalis sensitive to vancomycin P: Patient is on Merrem 1g iv q8h. Vancomycin ordered for pharmacy to dose. Start Vancomycin 1g IV Q24H. Vancomycin trough is drawn before the 4th dose on 01/08/24 1230. Vancomycin goal trough is between <10-20 mcg/ml>. Pharmacy will follow and or advise on antibiotics use as needed.
[2024-01-06 15:55] VITALS: BP 148/58
[2024-01-06] MEDS ORDERED: INSULIN LISPRO 100 UNITS/ML ML SC SCH (17:00)
--- NOTE | 2024-01-06 17:00 | NUR ---
LACTULOSE PO NOT GIVEN DUE TO PATIENTS REFUSAL AND HAD LARGE LOOSE BM THIS AFTERNOON.
[2024-01-06] MEDS ORDERED: LACTULOSE 20 GM/30 ML UDC PO ONE (17:40)
[2024-01-06] MEDS ORDERED: POTASSIUM CHLORIDE 20MEQ 100 ML IV SCH (17:40)
[2024-01-06 19:13] VITALS: BP 146/68
[2024-01-07 04:21] VITALS: BP 146/52
[2024-01-07 06:34] LABS: BASO% 0.5 % (0-3); HEMATOCRIT 25.6 % (39.0-50.0); HEMOGLOBIN 8.4 g/dl (14.0-18.0); IMMATURE GRANULOCYTES 0.3 % (0.0-5.0); LYMPH% 24.6 % (15-41); MEAN CELL VOLUME 86.5 fL CALC (80.0-100.0); MEAN CORPUSCULAR HGB 28.4 pG CALC (26.0-32.0); MEAN CORPUSCULAR HGB CONC 32.8 g/dL CAL (32.0-36.0); MONO% 6.3 % (2-13); NEUT# 2.57 thou/uL (1.82-7.42); NEUT% 64.3 % (42-76); RED BLOOD COUNT 2.96 mill/uL (4.70-6.10); RED CELL DISTRI WIDTH 13.6 % (11.5-15.5)
[2024-01-07 06:48] LABS: ANION GAP 4 (6-22 (CALC)); BUN 7 mg/dL (8-23); BUN/CREATININE RATIO 11 (12-20 (CALC)); CARBON DIOXIDE 25 mmol/l (22-30); CHLORIDE 112 mmol/l (95-108); CREATININE 0.7 mg/dL (0.7-1.3); GFR FOR AFR.AMER. > 60 ML/MIN (>=60 (CALC)); GFR OTHER RACES > 60 ML/MIN (>=60 (CALC)); POTASSIUM 4.1 mmol/l (3.5-5.1); SODIUM 137 mmol/l (137-146)
[2024-01-07 07:01] VITALS: BP 133/52
--- NOTE | 2024-01-07 07:30 | NUR ---
SHIFT CHANGE REPORT, PT SLEEPING, BREATHING EVEN AND NON-LABORED, WILL NOT RESPOND TO VERBAL OR TACTILE STIMULI AT TIHS TIME BUT SHOWS NO SIGN DISCOMFORT, IVF INFUSING, SANDOVAL CATHETER IN PLACE WITH YELLOW URINE, CALL EARLY IN REACH AND BED LOCKED IN LOWEST POSITION. GUARDS X 2 IN ROM.
[2024-01-07 10:15] VITALS: BP 123/47
[2024-01-07 15:12] VITALS: BP 140/53
[2024-01-07] MEDS ORDERED: CIPROFLOXACN500 MG PO (15:44)
[2024-01-07] MEDS ORDERED: LINEZOLID600 MG PO (15:44)
--- NOTE | 2024-01-07 18:16 | NUR ---
Discharge instructions given. Patient verbalizes understanding of same. Discharged in poor condition via [facility] to [facility] with *Other. All belongings sent with pt.
== END 2024-01-07 18:13 | disposition designated cancer center or children's hospital (05) | DRG 617 ==
LOC: MS2 11:31
PROVIDERS: Student in an Organized Health Care Education/Training Program; ADMIT Surgery; ATTEND Surgery
PROC: 0Y6H0Z1 Detachment at Right Lower Leg, High, Open Approach (ICD-10-PCS; principal; 2024-01-04)
DX: E11.69 Type 2 diabetes mellitus with other specified complication (principal); M86.171 Other acute osteomyelitis, right ankle and foot; E11.621 Type 2 diabetes mellitus with foot ulcer; L97.519 Non-pressure chronic ulcer of other part of right foot with unspecified severity; I10 Essential (primary) hypertension; I48.91 Unspecified atrial fibrillation; E11.51 Type 2 diabetes mellitus with diabetic peripheral angiopathy without gangrene; L89.150 Pressure ulcer of sacral region, unstageable; L89.220 Pressure ulcer of left hip, unstageable; L89.210 Pressure ulcer of right hip, unstageable; L89.620 Pressure ulcer of left heel, unstageable; L89.610 Pressure ulcer of right heel, unstageable; L89.890 Pressure ulcer of other site, unstageable; B95.2 Enterococcus as the cause of diseases classified elsewhere; K59.00 Constipation, unspecified; R32 Unspecified urinary incontinence; K08.109 Complete loss of teeth, unspecified cause, unspecified class; B19.20 Unspecified viral hepatitis C without hepatic coma; Z89.512 Acquired absence of left leg below knee; Z79.4 Long term (current) use of insulin; Z89.421 Acquired absence of other right toe(s); Z90.49 Acquired absence of other specified parts of digestive tract; Z74.01 Bed confinement status; Z20.822 Contact with and (suspected) exposure to COVID-19